=== PATIENT | male | born 1970 | race Caucasian/White ===

== ENCOUNTER 2024-06-08 12:20 | Outpatient (AMB) | payer OTHER, SELFPAY ==
--- NOTE | 2024-06-08 12:23 | A.OFFVIS_ITS ---
Intake Visit Reasons: Left Sided Sciatica Intake Note: RM 3 Yarn Spinner Required: No Allergies amoxicillin Allergy (Intermediate, Verified 06/08/24 12:30) Hives Medication List - Last Reconciled 06/08/24 by Vibha Rodríguez, MANAGER INTERVENTIONAL aspirin (Adult Low Dose Aspirin) 81 mg PO DAILY atorvastatin 80 mg PO DAILY methocarbamol 500 mg PO TID PRN metoprolol succinate ER 12.5 mg PO DAILY nitroglycerin mg sublingual pantoprazole 40 mg PO BID ticagrelor (Brilinta) 90 mg PO BID HPI HPI Left Sided Sciatica: Details: History of Present Illness The patient is a 53-year-old male presenting with chronic left-sided sciatica that originated in January. This condition is characterized by lower back pain radiating down the left leg to the ankle and heel, with additional, though less severe, right leg involvement from mid-thigh to knee. Physical therapy for >3 months provided limited improvement. His medical history includes a recent acute ST-elevation myocardial infarction (SC) with subsequent stent placement and ongoing Brilinta therapy, as well as a 7 mm kidney stone requiring laser lithotripsy and stent placement. He also has ADHD, Blackwell's esophagus, BPH, hyperlipidemia, migraines with aura, morbid obesity, and double knee replacement surgery in 2022. The patient's occupation involves constant standing and movement, imposing further physical demand. Pain Description - Onset and Timing: Pain began in January; chronic in nature. - Quality and Character: Described as lightning strikes in the left leg. - Primary Location: Lower back. - Areas of Radiation: Down left leg to ankle and heel; right side from mid-thigh to knee. - Exacerbating Factors: Movement, standing, kneeling. - Relieving Factors: None specified, minimal relief from physical therapy. - Functional Interference: Causes hunched walking posture, impacts mobility and work at the [employer]. Physical Exam - Appears afebrile. - Alert and oriented. - Mood and affect appropriate. - Follows and participates in conversation appropriately. - Respiratory effort is unlabored. - Able to transition from sit to stand unassisted. - Ambulates with bilaterally normal heel strike and toe off. - Able to stand and walk on toes and heels. - Rises up with discomfort. Results - MRI: Not yet completed but recommended for sciatic nerve evaluation. Pain Management - Affect: Pain severely limits activity; desire to return comfortably to work. - Analgesia: Current medications include Brilinta, aspirin, and gabapentin for pain and underlying conditions. On a scale of 0-10, current pain level not explicitly discussed. - Adverse Effects: Concerns about bleeding risks with Brilinta use. - Activities of Daily Living: Ability to perform job duties is compromised; mobility is hindered. - Aberrant Drug Related Behaviors: No evidence of medication misuse. Assessment & Plan Assessment & Plan (1) Lumbar radicular pain: Code(s): M54.16 - Radiculopathy, lumbar region Category: Medical Plan Plan - Obtain MRI for detailed evaluation of sciatic nerve involvement. - Consult powerhouse mechanic helper about holding Brilinta in July to facilitate cortisone injection. - Adjust gabapentin dose to manage pain, up to 1200 mg as needed. - Consider CBD products to aid pain relief. - Coordinate ongoing cardiovascular management with powerhouse mechanic helper. Patient was informed and verbally consented to the use of an ambient scribe for clinic note documentation during this visit. Discussion Notes During the consultation, I discussed the current issue of chronic left-sided sciatica with the patient, explaining its suspected connection to potential disc herniation, specifically possibly at the L5-S1 level. The primary focus is obtaining an MRI to assess sciatic nerve involvement for more precise diagnosis and treatment planning. I highlighted the potential intervention of an epidural cortisone shot but emphasized that the patient's anticoagulation therapy must be managed in conjunction with the cardiology team to avoid complications. We explored adjusting the patient's gabapentin dosage for better pain control, while monitoring for adverse effects, and considered supplemental options like CBD products. The patient was informed of the necessity for ongoing coordination with his powerhouse mechanic helper, especially regarding the possibility of temporarily discontinuing Brilinta to facilitate pain interventions. Follow-up communication with radiology for an MRI appointment was advised if not contacted within two weeks, ensuring continuity of care and progression towards an effective asad atment plan. Patient Instructions - Be prepared for an MRI test soon; expect a call within two to three weeks to schedule it. - Follow up with your powerhouse mechanic helper to discuss the possibility of holding Brilinta after July if a cortisone injection is to be pursued. - Monitor your pain and adjust your gabapentin dosage as needed, up to 1200 mg per day, but do not exceed without consulting us or your primary doctor. - Consider trying CBD products for pain relief and mobility improvement. - Keep regular appointments with your doctors for ongoing management. Orders: Orders MR lumbar spine wo con Today M54.16 - Radiculopathy, lumbar region Coding Level of Care Code New Pt Level 4 (17249) Diagnoses Lumbar radicular pain M54.16
--- OUTSIDE RECORDS SUMMARY | 2024-06-08 13:07 | XMS_ITS | Encounter Summary ---
Author Organization [facility] Address [address] [place] [address] Care Team Providers Care Hr Administrative Assistant Name Role Phone Pcp, No Primary Care Provider Unavailabl e Encounter Details Date Type Department Care Team ([facility] Contact Info) Description 05/15/2024 Procedure Pass [facility], Radiology (CT Scan) [address] [place] [id number] Social History Tobacco Use Types Packs/Day Years Used Date Smoking Tobacco: Never Assessed Sex and Gender Information Value Date Recorded Sex Assigned at Not on file Legal Sex Male 9:17 PM EDT Gender Identity Not on file Sexual Orientation Not on file documented as of this encounter Plan of Treatment Not on file documented as of this encounter Visit Diagnoses Not on filedocumented in this encounter Care Teams Hr Administrative Assistant Relationship Specialty Start Date End Date Pcp, [place] [id number] PCP - General 05/15/24 documented as of this encounter
--- OUTSIDE RECORDS SUMMARY | 2024-06-08 13:07 | XMS_ITS ---
Author Name [facility] Organization Unknown Problems Problem Status Onset Date Problem Type Date of Resoluti on Source Left lower quadrant abdominal pain active EncounterDiagnosisAct [id number] H Encounters Encounter Type Encounter Reason Primary Diagnosis Location Date Emergency Left lower quadrant pain Left lower quadrant pain [facility] 05/15/2024 Care Team Organization Name Specialty Phone Email Start Date End [facility] te [facility] 05/22/2024 [facility] 05/16/2024
--- OUTSIDE RECORDS SUMMARY | 2024-06-08 13:07 | XMS_ITS | Clinical Summary ---
Author Organization [facility] Address [address] [place] [id number] Care Team Providers Care Ticketer Name Role Phone Pcp, No Primary Care Provider Unavailabl e Allergies Active Allergy Reactions Criticality Noted Date Comments Amoxicillin Hives Medium 05/15/2024 Medications HYDROcodone-acet aminophen ([place]) 5-325 mg tablet Take 1 tablet by mouth every 6 (six) hours if needed for severe pain for up to 3 days. 8 tablet 05/16/2024 Active Encounters Date Type Department Care Team Description 05/16/2024 Procedure [facility], Radiology (CT Scan) [address] [place] [id number] 05/15/2024 9:39 PM EDT - 05/16/2024 3:49 AM EDT Emergency [facility] [place] [address] Leona Ba MD Left lower quadrant abdominal pain (Primary Dx) Discharge Disposition: Home or Self Care 05/15/2024 Procedure [facility], Radiology (CT Scan) [address] [place] [id number] 05/15/2024 Travel from Last 3 Months Social History Tobacco Use Types Packs/Day Years Used Date Smoking Tobacco: Never Assessed Sex and Gender Information Value Date Recorded Sex Assigned at Not on file Legal Sex Male 9:17 PM EDT Gender Identity Not on file Sexual Orientation Not on file Last Filed Vital Signs Vital Sign Reading Time Taken Comments Blood Pressure 138/74 05/16/2024 3:47 AM EDT Pulse 100 05/15/2024 9:40 PM EDT Temperature 36.7 ??C (98 ??F) 05/16/2024 3:38 AM EDT Respiratory Rate 16 05/16/2024 3:47 AM EDT Oxygen Saturation 97% 05/16/2024 3:47 AM EDT Inhaled Oxygen Concentration - - Weight 117.5 kg (259 lb 0.7 oz) 05/15/2024 9:40 PM EDT Height 175.3 cm (5' 9 ) 05/15/2024 9:40 PM EDT Body Mass Index 38.25 05/15/2024 9:40 PM EDT Plan of Treatment Health Maintenance Due Date Last Done Comments CT Colonography 1968 Colonoscopy 1968 Colorectal Cancer Screening 1968 FIT-DNA 1968 FIT 1968 FOBT 1968 Hepatitis C Screening 1968 Lipid Panel 1968 Sigmoidoscopy 1968 Annual Physical Exam 1986 Tdap and Td Vaccines Adult 11/09/1987 Pneumococcal Vaccine: 50+ Ye ars (1 of 1 - PCV) 2018 Zoster Vaccines (1 of 2) 2018 COVID-19 Vaccine ( - 2023-2 5 season) 2023 Influenza Vaccine (Season Ended) 2024 HIB Vaccines Aged Out No longer eligi ble based on patient's age to complete this topic HPV Vaccines Aged Out No longer eligi ble based on patient's age to complete this topic Hepatitis A Vaccines Aged Out No long er eligible based on patient's age to complete this topic IPV Vaccines Aged Out No longer eligi ble based on patient's age to complete this topic Meningococcal Vaccine Aged Out No vannessa ady eligible based on patient's age to complete this topic RSV <20 Months Aged Out No longer ming gible based on patient's age to complete this topic Procedures Procedure Name Priority Date/Time Associated Diagnosis Comments CT ABDOMEN PELVIS W IV CONTRAST STAT 05/16/2024 1:57 AM EDT UA WITH REFLEX CULTURE STAT 05/16/2024 12:[address] ABDOMEN PELVIS WO IV CONTRAST STAT 05/15/2024 11:55 PM EDT ECG 12-LEAD STAT 05/15/2024 11:02 PM EDT CMP. STAT 05/15/2024 10:05 PM EDT LIPASE STAT 05/15/2024 10:05 PM EDT CMP. STAT 05/15/2024 10:05 PM EDT PLACEHOLDER MINT STAT 05/15/2024 10:0 4 PM EDT EXTRA TUBES STAT 05/15/2024 10:04 PM EDT CBC WITH AUTO DIFFERENTIAL STAT 05/15/2024 10:04 PM EDT CBC AND DIFFERENTIAL STAT 05/15/2024 10:04 PM EDT from Last 3 Months Results * CT Abdomen Pelvis w IV Contrast (05/16/2024 1:57 AM EDT) Anatomical Region Laterality Modality Body Computed Tomogra phy Impressions 05/16/2024 7:18 AM EDT Impression: No evidence of renal/ureteric calculus or hydroureteronephrosis. Subtle cortical hypodensities in the left kidney with perinephric fat stranding, Suspicious for acute pyelonephritis.Recommend clinical and laboratory correlation. ?? Other findings as described above. END OF REPORT Narrative 05/16/2024 7:18 AM EDT Protocol1: - Axial images with multiplanar reformations. CT scan of the abdomen and pelvis. May 16, 2024 0147 hours Clinical History: left flank/abd pain, ?lucency within L renal capsule on noncon CT Technique: Helical axial sections with sagittal and coronal reformats of the abdomen and pelvis were obtained with intravenous contrast. Iterative reconstruction technique was employed to reduce patient radiation exposure. Contrast Dose: 100 mL Omnipaque 350 IV. Radiation Dose: Total exam DLP 1249.50 mGy/cm. Compared with the prior study dated April Findings: Bibasilar atelectasis is seen. There are subtle cortical hypodensities in the left kidney with perinephric fat stranding.There are left renal cysts, the largest measuring 2 cm in the left upper pole. The liver, gallbladder, pancreas, spleen and adrenals are unremarkable. No evidence of bowel obstruction. ??The appendix is surgically absent. There is no mesenteric or retroperitoneal adenopathy. The aorta and its branches demonstrate atheromatous calcification without evidence of aneurysm. The urinary bladder is unremarkable. Calcific densities are seen in the pelvis, likely representing phleboliths. There is no free fluid or free air. Degenerative changes are identified in the spine. Procedure Note Andrae Pinzon MD - 05/16/2024 Protocol1: - Axial images with multiplanar reformations. CT scan of the abdomen and pelvis. May 16, 2024 0147 hours Clinical History: left flank/abd pain, ?lucency within L renal capsule onnoncon CT Technique: Helical axial sections with sagittal and coronal reformats ofthe abdomen and pelvis were obtained with intravenous contrast. Iterativereconstruction technique was employed to reduce patient radiationexposure. Contrast Dose: 100 mL Omnipaque 350 IV. Radiation Dose: Total exam DLP 1249.50 mGy/cm. Compared with the prior study dated April Findings: Bibasilar atelectasis is seen. There are subtle cortical hypodensities in the left kidney withperinephric fat stranding.There are left renal cysts, the largestmeasuring 2 cm in the left upper pole. The liver, gallbladder, pancreas,spleen and adrenals are unremarkable. No evidence of bowel obstruction. The appendix is surgically absent.There is no mesenteric or retroperitoneal adenopathy. The aorta and itsbranches demonstrate atheromatous calcification without evidence ofaneurysm. The urinary bladder is unremarkable. Calcific densities are seen in thepelvis, likely representing phleboliths. There is no free fluid or freeair. Degenerative changes are identified in the spine. IMPRESSION: Impression: No evidence of renal/ureteric calculus or hydroureteronephrosis. Subtle cortical hypodensities in the left kidney with perinephric fatstranding, Suspicious for acute pyelonephritis.Recommend clinical andlaboratory correlation. Other findings as described above. END OF REPORT Leona Ba MD IMG CT PROCEDURES Final Resul t * (ABNORMAL) UA with Reflex Culture (05/16/2024 12:11 AM EDT) Color Yellow Yellow, Straw, Dark Yellow 05/16/2024 12:43 AM EDT LAB[facility] Clarity Clear Clear 05/16/2024 12:43 AM EDT LAB[facility]ATORY SERVICES Specific [place] 1.025 05/17/19 12:43 AM EDT LAB[facility] Comment:Values <1.005 and >1 .030 are considered abnormal. Results should always be interpreted in conjunction with the patient? s medical history, clinical presentation, and other findings. pH 6.0 5.0 - 8.0 pH 05/16/2024 12:43 AM EDT LAB[facility] Protein Negative Negative, Trace mg/dL 05/16/2024 12:43 AM EDT LAB[facility] Glucose Negative Negative mg/dL 05/16/2024 12:43 AM EDT LAB[facility]ORY [facility] Ketones Trace(A) Negative mg/dL 05/16/2024 12:43 AM EDT LAB[facility] Nitrite Negative Negative 05/16/2024 12:43 AM EDT LAB[facility] Bilirubin Negative Negative 05/16/2024 12:43 AM EDT LAB[facility] Blood Negative Negative 05/16/2024 12:43 AM EDT LAB[facility] Leukocyte Esterase Negative Negative 05/16/2024 12:43 AM EDT LAB[facility] UA Urobilinogen 1.0 0.2 - 1.0 E.U./dL 05/16/2024 12:43 AM EDT LAB[facility] Urine (Urine, Unspecified) Non-blood Collection / Unknown 05/16/2024 12:11 AM EDT 05/16/2024 12:37 AM EDT Leona Ba MD LAB URINE ORDERABLES Final Re sult LABORATORY SERVICES CT:[id number] [place] [id number], [place] * CT Abdomen Pelvis wo IV Contrast (05/15/2024 11:55 PM EDT) Anatomical Region Laterality Modality Body Computed Tomogra phy Impressions 05/16/2024 7:17 AM EDT Impression: No evidence of ureteric calculus or hydroureteronephrosis. Other findings as described above. END OF REPORT Narrative 05/16/2024 7:17 AM EDT Protocol1: - Axial images with multiplanar reformations. CT scan of the abdomen and pelvis May 15, 2024 2352 hours Clinical History: Flank pain, kidney stone suspected // lower left abdomin radiating to his left flank. hx appendectomy Technique: Helical axial sections ??with sagittal and coronal reformats of the abdomen and pelvis were obtained without intravenous contrast. Iterative reconstruction technique was employed to reduce patient radiation exposure. Radiation Dose: Total exam DLP 1360 mGy/cm. Comparison: No prior study is available for comparison. Findings: The lung bases are clear. Nonspecific perinephric fat stranding is noted bilaterally. There is a left renal cyst. There is a nonobstructing calculus in the left kidney. The liver, ??gallbladder, pancreas, spleen, and adrenals are unremarkable ??on this noncontrast study. No evidence of bowel obstruction. Appendix is surgically absent. There is no mesenteric or retroperitoneal adenopathy. The urinary bladder is unremarkable. There is no free fluid or free air. Calcific densities are seen in the pelvis, likely representing phleboliths. Mild degenerative changes are identified in the spine. Procedure Note Andrae Pinzon MD - 05/16/2024 Protocol1: - Axial images with multiplanar reformations. CT scan of the abdomen and pelvis May 15, 2024 2352 hours Clinical History: Flank pain, kidney stone suspected // lower left abdominradiating to his left flank. hx appendectomy Technique: Helical axial sections with sagittal and coronal reformats ofthe abdomen and pelvis were obtained without intravenous contrast.Iterative reconstruction technique was employed to reduce patientradiation exposure. Radiation Dose: Total exam DLP 1360 mGy/cm. Comparison: No prior study is available for comparison. Findings: The lung bases are clear. Nonspecific perinephric fat stranding is noted bilaterally. There is a left renal cyst. There is a nonobstructing calculus in the left kidney. The liver, gallbladder, pancreas, spleen, and adrenals are unremarkableon this noncontrast study. No evidence of bowel obstruction. Appendix is surgically absent. There isno mesenteric or retroperitoneal adenopathy. The urinary bladder is unremarkable. There is no free fluid or free air. Calcific densities are seen in the pelvis, likely representingphleboliths. Mild degenerative changes are identified in the spine. IMPRESSION: Impression: No evidence of ureteric calculus or hydroureteronephrosis. Other findings as described above. END OF REPORT Leona Ba MD IMG CT PROCEDURES Final Resul t * ECG 12 lead (05/15/2024 11:02 PM EDT) Heart Rate 59 bpm TRACEMASTER RR INTERVAL 1,008 ms TRACEMASTER ATRIAL RATE 60 ms TRACEMASTER VT Interval 192 ms TRACEMASTER P Duration 121 ms TRACEMASTER P Horizontal [place] -20 deg TRACEMASTER P Front [place] 44 deg TRACEMASTER Q Onset 499 ms TRACEMASTER QRSD Interval 90 ms TRACEMASTER QT Interval 415 ms TRACEMASTER QTcB 413 ms TRACEMASTER QTcF 413 ms TRACEMASTER QRS HORIZONTAL AXIS 19 deg TRACEMASTER QRS [place] 48 deg TRACEMASTER I-40 Horizontal [place] 24 deg TRACEMASTER I-40 Front [place] 31 deg TRACEMASTER T-40 Horizontal [place] -10 deg TRACEMASTER T-40 Front [place] 79 deg TRACEMASTER T Horizontal [place] 28 deg TRACEMASTER T Wave [place] 42 deg TRACEMASTER S-T Horizontal [place] 29 deg TRACEMASTER S-T Front [place] 43 deg TRACEMASTER ECG Impression - OTHERWISE NORMAL ECG - TRACEMASTER ECG Impression Sinus rhythm TRACEMASTER ECG Impression Minimal ST elevation, inferior leads TRACEMASTER 05/15/2024 11:0 2 PM EDT Corinna CARVER ECG ORDERABLES Final Resu lt TRACEMASTER * (ABNORMAL) Comprehensive Metabolic Panel. (05/15/2024 10:05 PM EDT) [facility] Sodium 144 136 - 145 mmol/L LAB CHEMISTRY METHOD 05/15/2024 10:34 PM EDT LAB[facility] Comment:Please note referenc e range changes effective 01/03/2024. Potassium 3.9 3.5 - 5.1 mmol/L LAB CHEMISTRY METHOD 05/15/2024 10:34 PM EDT LAB[facility] Comment:Please note referenc e range changes effective 01/03/2024. Chloride 107 98 - 107 mmol/L LAB CHEMISTRY METHOD 05/15/2024 10:34 PM EDT LAB[facility] Comment:Please note referenc e range changes effective 01/03/2024. CO2 28.4 20.0 - 31.0 mmol/L LAB CHEMISTRY METHOD 05/15/2024 10:34 PM EDT LAB[facility] Comment:Please note referenc e range changes effective 01/03/2024. Anion Gap 9 3 - 11 05/15/2024 10:34 PM EDT LAB[facility] Glucose Level 90 70 - 99 mg/dL LAB CHEMISTRY METHOD 05/15/2024 10:34 PM EDT LAB[facility] BUN 26(H) 9 - 23 mg/dL LAB CHEMISTRY METHOD 05/15/2024 10:34 PM EDT [facility] Comment:Please note referenc e range changes effective 01/03/2024. Creatinine, Serum 1.3 0.7 - 1.3 mg/dL LAB CHEMISTRY METHOD 05/15/2024 10:34 PM EDT LAB[facility] Comment:Please note referenc e range changes effective 01/03/2024. B/CR Ratio 20.0 6.0 - 23.0 05/15/2024 10:34 PM EDT LAB[facility] Glomerular Filtration Rate >=60 >=60 mL/min/1. 73 m2 LAB CHEMISTRY METHOD 05/15/2024 10:34 PM EDT [facility] Comment:Calculation based on the Chronic Kidney Disease Epidemiology Collaboration(CKD-EPI) equation refit without adjustment for race. Calcium, Total 9.3 8.7 - 10.4 mg/dL LAB CHEMISTRY METHOD 05/15/2024 10:34 PM EDT [facility] Comment:Please note referenc e range changes effective 01/03/2024. Total Protein 7.0 5.7 - 8.2 g/dL LAB CHEMISTRY METHOD 05/15/2024 10:34 PM EDT [facility] Comment:Please note referenc e range changes effective 01/03/2024. Albumin Level 4.8 3.2 - 4.8 g/dL LAB CHEMISTRY METHOD 05/15/2024 10:34 PM EDT LAB[facility] Comment:Please note referenc e range changes effective 01/03/2024. A/G Ratio 2.2 1.1 - 3.0 05/15/2024 10:34 PM EDT LAB[facility] Total Bilirubin 0.6 0.1 - 1.2 mg/dL LAB CHEMISTRY METHOD 05/15/2024 10:34 PM EDT LAB[facility] Comment:The [employer] Tota l Bilirubin_2 (TBil_2) assay is based on a chemical oxidation method using vanadate as an oxidizing agent. ALT 31 10 - 49 U/L LAB CHEMISTRY METHOD 05/15/2024 10:34 PM EDT LAB[facility] Comment:Please note referenc e range changes effective 01/03/2024. AST 25 <34 U/L LAB CHEMISTRY METHOD 05/15/2024 10:34 PM EDT [facility] Comment:Please note referenc e range changes effective 01/03/2024. Alkaline Phosphatase 79 28 - 130 U/L LAB CHEMISTRY METHOD 05/15/2024 10:34 PM EDT [facility] Comment:Please note referenc e range changes effective 01/03/2024. Blood Venous blood / Unknown Venipuncture / Unknown 05/15/2024 10:05 PM EDT 05/15/2024 10:05 PM EDT us Leona Ba MD LAB BLOOD ORDERABLES Final Re sult LABORATORY SERVICES CT:[id number] [place] [address], * Lipase (05/15/2024 10:05 PM EDT) Lipase 36 12 - 53 U/L LAB CHEMISTRY METHOD 05/15/2024 10:31 PM EDT LAB[facility] Comment:Please note referenc e range changes effective 01/03/2024. Blood Venous blood / Unknown Venipuncture / Unknown 05/15/2024 10:05 PM EDT 05/15/2024 10:05 PM EDT Leona Ba MD LAB BLOOD ORDERABLES Final Re sult Performing Organization Address [facility] Co de Phone Number LABORATORY SERVICES CT:[id number] [place] [address], [place] * PLACEHOLDER MINT (05/15/2024 10:04 PM EDT) Extra Tube Yes 05/16/2024 7:01 AM EDT LAB[facility] Blood Venous blood / Unknown Venipuncture / Unknown 05/15/2024 10:04 PM EDT 05/15/2024 10:04 PM EDT Leona Ba MD LAB BLOOD ORDERABLES Final Re sult Performing Organization Address [facility] de Phone Number LABORATORY SERVICES CT:[id number] [place] [address], [place] * (ABNORMAL) CBC auto differential (05/15/2024 10:04 PM EDT) Auto WBC 9.6 4.5 - 11.5 cells X 10*3/uL 05/15/2024 10:17 PM EDT LAB[facility] RBC 5.19 4.60 - 6.00 cells X 10*6/uL 05/15/2024 10:17 PM EDT LAB[facility] Hemoglobin 15.7 14.0 - 18.0 g/dL 05/15/2024 10:17 PM EDT LAB[facility] Hematocrit 48.4 40.0 - 54.0 % 05/15/2024 10:17 PM EDT LAB[facility] MCV 93.3 80.0 - 94.0 fL 05/15/2024 10:17 PM EDT LAB[facility] MCH 30.3 26.0 - 32.0 pg 05/15/2024 10:17 PM EDT LAB[facility] MCHC 32.4 32.0 - 37.0 g/dL 05/15/2024 10:17 PM EDT LAB[facility] RDW (CV) 13.0 11.5 - 14.5 % 05/15/2024 10:17 PM EDT LAB[facility] RDW (SD) 44.7 36.0 - 48.8 fL 05/15/2024 10:17 PM EDT LAB[facility] Platelets 133(L) 150 - 450 cells X 10*3/uL 05/15/2024 10:17 PM [facility] MPV 11.5 9.5 - 12.3 fL 05/15/2024 10:17 PM EDT LAB[facility] Granulocytes % 75.0 % 05/15/2024 10:17 PM T LAB[facility] Comment:Percent cell count r eference ranges have been removed. Per the [employer] recommendations, these ranges should not be reported when absolute cell count reference ranges are reported as this can lead to misinterpretation of CBC data. Immature Granulocytes % 0.5 % 05/15/2024 10:17 PM [facility] Comment:Immature Granulocyte s (percent and absolute counts) include neutrophilic metamyelocytes, myelocytes, and promyelocytes. Lymphocytes % 12.8 % 05/15/2024 10:17 PM [facility] Monocytes % 9.3 % 05/15/2024 10:17 PM [facility] Eosinophils % 2.0 % 05/15/2024 10:17 PM [facility] Basophils % 0.4 % 05/15/2024 10:17 PM [facility] Gran # 7.2 2.3 - 8.6 cells X 10*3/uL 05/15/2024 10:17 PM T LABORATORY SERVICES Comment:Please Note: Gran # is equivalent to ANC. IMM GRAN # 0.05 0.00 - 0.05 cells X 10*3/uL 05/15/2024 10:17 PM EDT LABORATORY SERVICES Eosinophils # 0.2 0.0 - 0.4 cells X 10*3/uL 05/15/2024 10:17 PM [facility] Lymphocytes # 1.2 0.8 - 4.8 cells X 10*3/uL 05/15/2024 10:17 PM EDT LABORATORY SERVICES MONO # 0.9 0.1 - 1.3 cells X 10*3/uL 05/15/2024 10:17 PM EDT LABOR[facility]ORY SERVICES BASOPHIL # 0.0 0.0 - 0.2 cells X 10*3/uL 05/15/2024 10:17 PM EDT LAB[facility] Blood Venous blood / Unknown Venipuncture / Unknown 05/15/2024 10:04 PM EDT 05/15/2024 10:04 PM EDT us Leona Ba MD LAB BLOOD ORDERABLES Final Re sult LABORATORY SERVICES CT:[id number] [place] [address], [place] from Last 3 Months Insurance [facility] Care Teams Ticketer Relationship Specialty Start Date End Date Pcp, [place] [address] PCP - General 05/15/24
--- OUTSIDE RECORDS SUMMARY | 2024-06-08 13:07 | XMS_ITS | Encounter Summary ---
Author Organization [facility] Address [address] [place] [address] Care Team Providers Care Office Spec Name Role Phone Pcp, No Primary Care Provider Unavailabl e Encounter Details Date Type Department Care Team ([facility] Contact Info) Description 05/16/2024 Procedure Pass [facility], Radiology (CT Scan) [address] [place] [id number] Social History Tobacco Use Types Packs/Day Years [...] on filedocumented in this encounter Care Teams Office Spec Relationship Specialty Start Date End Date Pcp, [place] [address] PCP - General 05/15/24 documented as of this encounter
== END 2024-06-08 12:54 | disposition home or self-care (01) ==
LOC: HO.PMC 12:21
PROVIDERS: PCP Family Medicine; Referring Provider Family Medicine; Visit Provider Internal Medicine
DX: M54.16 Radiculopathy, lumbar region (principal)
CPT/HCPCS: 99204

== ENCOUNTER → 2024-06-20 18:48 | Outpatient (BNV) | payer OTHER, SELFPAY | PROVIDERS: PCP Family Medicine; Visit Provider Radiology Diagnostic Radiology | DX: M47.816 Spondylosis without myelopathy or radiculopathy, lumbar region (principal); M99.63 Osseous and subluxation stenosis of intervertebral foramina of lumbar region | CPT/HCPCS: 72148 ==

== ENCOUNTER 2024-06-20 18:53 | Outpatient (REF) | payer OTHER, SELFPAY ==
--- NOTE | ~2024-06-20 | MR_ITS ---
EXAMINATION: MR LUMBAR SPINE WITHOUT CONTRAST CLINICAL INFORMATION: Radiculopathy, lumbar region. COMPARISON: None available. TECHNIQUE: MRI of the lumbar spine was obtained using routine sequences without contrast. FINDINGS: Last rib-bearing vertebra labeled T12. Probable Castellvi type I sacralization. Bone marrow STIR signal abnormality centered in the facet joints of L4-5 and as well as the pedicles and transverse processes. Multilevel marginal osteophyte formation and disc desiccation. Grade 1 anterolisthesis L4-5 and L5-S1, transitional vertebra. Grade 1 retrolisthesis, L2-3. The conus medullaris ends at pedicle of L1 with normal signal. T12-L1: No disc herniation. No neuroforamina stenosis. L1-2: No disc herniation. No neuroforamina stenosis. L2-3: Broad-based disc bulging. Facet joint and ligamentum flavum hypertrophy. Reduced AP diameter of the thecal sac and the neural foramina abutting the L4 and L3 exiting nerve roots. L4-5: Bilateral facet joint hypertrophy as well as ligamentum flavum. Broad-based disc bulging. Facet effusion. CSF effacement of the thecal sac and central spinal canal stenosis compressing the neural elements of the thecal sac and to a lesser extent bilateral neuroforamina stenosis encroaching the L4 exiting nerve roots. Probable 3 mm synovial cyst anterior to the right ligamentum flavum. L5-S1: Transitional vertebra. Grade 1 anterolisthesis. Broad-based disc bulging. Facet joint and ligamentum flavum hypertrophy resulting in central spinal canal and bilateral neuroforamina stenosis encroaching likely compressing the S1 and L5 nerve roots. No prevertebral compartment hematoma, mass or fluid collection. There is a 3 cm exophytic cystic lesion, left kidney. Few scattered cystic lesions in the kidneys. MR/MR lumbar spine wo con IMPRESSION: Multilevel lumbar spondylosis resulting in grade 1 anterolisthesis L4-5 and L5-S1 and central spinal canal and bilateral neuroforamina stenosis compressing the neural elements of the thecal sac at L4-5 and L5-S1 as well as the exiting nerve roots. Electronically signed by: Javon Rubio MD 06/21/2024 03:03 PM EDT
== END 2024-06-20 18:54 | disposition home or self-care (01) ==
LOC: HO.MRI 18:53
PROVIDERS: PCP Family Medicine; Visit Provider Internal Medicine
DX: M54.16 Radiculopathy, lumbar region (principal)
CPT/HCPCS: 72148

== ENCOUNTER 2024-07-02 11:05 | Outpatient (AMB) | payer OTHER, SELFPAY ==
--- NOTE | 2024-07-02 11:07 | MHC.OFFVIS ---
Vital Signs 07/02/24 11:08 Height 5 ft 9.5 in Weight 255 lb BMI 37.1 BP 149/83 H Blood Pressure Location Lt brachial Position Sitting Respiration 16 Pulse 89 Pulse Source Pulse Oximeter Pulse Oximetry (%) 96 Oxygen Delivery Method Room Air Intake Visit Reasons: MRI results Mosaic Technician Required: No Allergies amoxicillin Allergy (Intermediate, Verified 07/02/24 11:09) Hives Medication List - Last Reconciled 07/02/24 by Kelly Tamez LPN acetaminophen-codeine 300-30 mg 1 tab PO QID PRN aspirin (Adult Aspirin Regimen) 81 mg PO DAILY aspirin (Adult Low Dose Aspirin) 81 mg PO DAILY atorvastatin 80 mg PO DAILY dextroamphetamine-amphetamine 30 mg ER (Adderall XR) 1 cap PO DAILY gabapentin 400 mg PO TID methocarbamol 500 mg PO TID PRN metoprolol succinate ER 12.5 mg PO DAILY nitroglycerin mg sublingual pantoprazole 40 mg PO BID ticagrelor (Brilinta) 90 mg PO BID HPI HPI MRI results: Details: History of Present Illness The patient is a 53-year-old male presenting with lumbar-related pain issues. He experiences discomfort from lumbar spinal stenosis at L4-5, observed alongside a disc herniation and ligamentum flavum hypertrophy. The lumbar region exhibits a slight slippage of vertebrae indicative of spondylolisthesis. Facet joint degeneration, more significant on the left at L4-5 and L5-S1, adds to symptoms, which include sciatica likely triggered by irritation at the L4 nerve root. The patient's medication regimen, which includes T3 and gabapentin, has not sufficiently addressed his pain. Despite engaging in physical therapy coinciding with cardiac rehab post-stent placement after his myocardial infarction in July last year, relief has been minimal. The pain disrupts routine activities and sleep patterns, enhancing the cycle of discomfort and impacting overall life quality. Pain Description - Onset: Chronic lumbar pain stemming from L4-5 and related structures. - Quality: Discomfort with sciatica symptoms from nerve irritation. - Location: Lower back, particularly at L4-5; radiates along L4 nerve pathway. - Aggravating Factors: Physical activity; lack of sleep exacerbates the pain. - Alleviating Factors: Past therapies such as cardiac rehab and physical therapy have seen limited effectiveness; seeking new solutions. - Interference: Pain impacts work and daily function, contributing to sleep disturbances. Physical Exam Results - MRI results showing lumbar spinal stenosis at L4-5, disc herniation, ligamentum flavum hypertrophy, potential lumbar spondylolisthesis, facet joint degeneration at L4-5 and L5-S1, and a possible synovial cyst. Pain Management - Affect: Pain causes sleep disturbances and irritability. - Analgesia: Currently using T3 and gabapentin, neither providing effective relief. - Adverse Effects: No significant side effects reported. - Activities of Daily Living: Pain hampers work and sleep. - Aberrant Drug Related Behaviors: None reported; desires non-opioid solutions. [facility] Medical History (Updated 07/09/24 @ 09:50 by James Lisa MD) History of myocardial infarction Physical Exam Vital Signs: Last Vital Signs Pulse 89 07/02/24 11:08 Resp 16 07/02/24 11:08 BP 149/83 H 07/02/24 11:08 Pulse Ox 96 07/02/24 11:08 Oxygen Delivery Method Room Air 07/02/24 11:08 BMI result Body Mass Index 37.1 Assessment & Plan Assessment & Plan (1) Lumbar radicular pain: Code(s): M54.16 - Radiculopathy, lumbar region Category: Medical (2) Coronary artery disease: Code(s): I25.10 - Atherosclerotic heart disease of [place] coronary artery without angina pectoris Category: Medical Plan Plan - Administer lumbar epidural steroid injection at L3-4 for lumbar spinal stenosis related radicular pain relief. - Consider radiofrequency ablation for facet pain in the future. - Review need for minimally invasive decompression or consult for possible lumbar spinal fusion. - Transition off Brilinta after confirming with strip tank tender, aligned with travel plans. - Switch to tramadol after PCP consultation if tylenol #3 insufficient. - Perform x-ray to evaluate spinal movement and stability status. Patient was informed and verbally consented to the use of an ambient scribe for clinic note documentation during this visit. Discussion Notes I reviewed the MRI results with the patient, confirming the presence of lumbar spinal stenosis at L4-5 and corresponding disc herniation, facet joint degeneration, and related issues. We explored pain management options, contemplating cortisone injections and more advanced interventions such as nerve ablation if necessary. We discussed the potential need for surgery if conservative treatments prove inadequate. As part of the plan, I advised coordination with the patient's strip tank tender to discuss timing regarding stopping Brilinta, considering anticipated travel and the impact of his pain on physical activity. We reviewed the need for imaging to further assess spinal stability and delineated necessary preapproval changes in medication to effectively manage his pain without resorting to opioids. Patient Instructions - Consider getting a lumbar epidural steroid injection as a treatment option. - Discuss with your PCP about switching to tramadol for pain management. - Coordinate with your strip tank tender about stopping Brilinta on July 21. - Follow up with an x-ray to check spinal instability as soon as possible. - Ensure to call ahead if changes to the current pain management plan are needed. Orders: Orders XR lumbar spine 6V w bending 07/02/24 M54.16 - Radiculopathy, lumbar region Coding Level of Care Code Est Pt Level 4 (21225) Diagnoses Lumbar radicular pain M54.16 Coronary artery disease I25.10
[2024-07-02 11:08] VITALS: BP 149/83; PULSE 89; RESP 16; O2SAT 96; BMI 37.1
--- OUTSIDE RECORDS SUMMARY | 2024-07-02 11:51 | XMS_ITS | Encounter Summary ---
Author Organization [facility] Address [address] [place] [address] Care Team Providers Care Dry Cleaner Helper Name Role Phone Pcp, No Primary Care Provider Unavailabl e Encounter Details Date Type Department Care Team ([facility] Contact Info) Description 05/16/2024 Procedure Pass [facility], Radiology (CT Scan) [address] [place] [id number] Social History Tobacco Use Types Packs/Day Years [...] on filedocumented in this encounter Care Teams Dry Cleaner Helper Relationship Specialty Start Date End Date Pcp, No [place] [address] PCP - General 05/15/24 documented as of this encounter
--- OUTSIDE RECORDS SUMMARY | 2024-07-02 11:51 | XMS_ITS | Clinical Summary ---
Author Organization [facility] Address [address] [place] [address] Care Team Providers Care Value Stream Leader Name Role Phone Pcp, No Primary Care Provider Unavailabl e Allergies Active Allergy Reactions Criticality Noted Date Comments Amoxicillin Hives Medium 05/15/2024 Medications HYDROcodone-acet aminophen (Isabella) 5-325 mg tablet Take 1 tablet by mouth every 6 (six) hours if needed for severe pain for up to 3 days. 8 tablet 05/16/2024 Active Encounters Date Type Department Care Team Description 05/16/2024 Procedure [facility], Radiology (CT Scan) [address] [place] [address] 05/15/2024 9:39 PM EDT - 05/16/2024 3:49 AM EDT Emergency [facility] [place] [address] Leona Ba MD Left lower quadrant abdominal pain (Primary Dx) Discharge Disposition: Home or Self Care 05/15/2024 Procedure [facility], Radiology (CT Scan) [address] [place] [address] 05/15/2024 Travel from Last 3 Months Social [...] 05/16/2024 12:43 AM EDT LABORATORY SERVICES Specific [place] 1.025 05/17/19 12:43 AM EDT LABORATORY SERVICES [...] ORDERABLES Final Re sult LABORATORY SERVICES [id number] [place] [address], [place] * CT Abdomen Pelvis wo IV [...] ms TRACEMASTER ATRIAL RATE 60 ms TRACEMASTER UT Interval 192 ms TRACEMASTER P Duration 121 ms TRACEMASTER P Horizontal Rives -20 deg TRACEMASTER P Front Rives 44 deg TRACEMASTER Q Onset 499 ms TRACEMASTER QRSD Interval 90 ms TRACEMASTER QT Interval 415 ms TRACEMASTER QTcB 413 ms TRACEMASTER QTcF 413 ms TRACEMASTER QRS HORIZONTAL AXIS 19 deg TRACEMASTER QRS Rives 48 deg TRACEMASTER I-40 Horizontal Rives 24 deg TRACEMASTER I-40 Front Rives 31 deg TRACEMASTER T-40 Horizontal Rives -10 deg TRACEMASTER T-40 Front Rives 79 deg TRACEMASTER T Horizontal Rives 28 deg TRACEMASTER T Wave Rives 42 deg TRACEMASTER S-T Horizontal Rives 29 deg TRACEMASTER S-T Front Rives 43 deg TRACEMASTER ECG Impression - OTHERWISE NORMAL ECG - TRACEMASTER ECG Impression Sinus rhythm TRACEMASTER ECG Impression Minimal ST elevation, inferior leads TRACEMASTER 05/15/2024 11:0 2 PM EDT Corinna CARVER ECG ORDERABLES Final Resu lt TRACEMASTER * (ABNORMAL) Comprehensive Metabolic Panel. (05/15/2024 10:05 PM EDT) [facility] Sodium 144 136 - 145 mmol/L LAB [...] ORDERABLES Final Re sult LABORATORY SERVICES [id number] [place] [address], * Lipase (05/15/2024 10:05 PM EDT) Lipase 36 12 - 53 U/L LAB CHEMISTRY METHOD 05/15/2024 10:31 PM EDT LABORATORY SERVICES Comment:Please note referenc e range changes effective 01/03/2024. Blood Venous blood / Unknown Venipuncture / Unknown 05/15/2024 10:05 PM EDT 05/15/2024 10:05 PM EDT Leona Ba MD LAB BLOOD ORDERABLES Final Re sult Performing Organization Address [facility] Co de Phone Number LABORATORY SERVICES [id number] [place] [address], [place] * [place] (05/15/2024 10:04 PM EDT) Extra Tube Yes 05/16/2024 7:01 AM EDT LABORATORY SERVICES Blood Venous blood / Unknown Venipuncture / Unknown 05/15/2024 10:04 PM EDT 05/15/2024 10:04 PM EDT Leona Ba MD LAB BLOOD ORDERABLES Final Re sult Performing Organization Address [facility] de Phone Number LABORATORY SERVICES [id number] [place] [address], [place] * (ABNORMAL) CBC auto differential (05/15/2024 [...] 450 cells X 10*3/uL [facility]24 [facility] MPV 11.5 9.5 - 12.3 fL 05/15/2024 10:17 PM EDT LABORATORY SERVICES Granulocytes % 75.0 % 05/15/2024 10:17 PM T LABORATORY SERVICES Comment:Percent cell count r eference ranges have been removed. Per the [employer] recommendations, these ranges should not be reported when absolute cell count reference ranges are reported as this can lead to misinterpretation of CBC data. Immature Granulocytes % 0.5 % 05/15/2024 10:17 PM [facility] LABORATORY SERVICES Comment:Immature Granulocyte s (percent and absolute counts) include neutrophilic metamyelocytes, myelocytes, and promyelocytes. Lymphocytes % 12.8 % 05/15/2024 10:17 PM [facility] Monocytes % 9.3 % 05/15/2024 10:17 PM [facility] Eosinophils % 2.0 % 05/15/2024 10:17 PM [facility] LABORATORY SERVICES Basophils % 0.4 % 05/15/2024 10:17 PM [facility] Gran # 7.2 2.3 - 8.6 cells X 10*3/uL 05/15/2024 10:17 PM T LABORATORY SERVICES Comment:Please Note: Gran # is equivalent to ANC. IMM GRAN # 0.05 0.00 - 0.05 cells X 10*3/uL 05/15/2024 10:17 PM EDT LABORATORY SERVICES Eosinophils # 0.2 0.0 - 0.4 cells X 10*3/uL 05/15/2024 10:17 PM [facility] LABORATORY SERVICES Lymphocytes # 1.2 0.8 - [...] ORDERABLES Final Re sult LABORATORY SERVICES CT:[id number] [place] [address], [place] from Last 3 Months Insurance [facility] Care Teams Value Stream Leader Relationship Specialty Start Date End Date Pcp, [place] [address] PCP - General 05/15/24
--- OUTSIDE RECORDS SUMMARY | 2024-07-02 11:51 | XMS_ITS | Data Portability ---
Author Organization [facility] [address] Address [address] [place] [address] Assessment No assessment recorded. Plan of Treatment Reminders Order Date Submit Date Provider Last Modified By Organization Details Last Modified Time Details Appointments None recorded. Lab None recorded. Referral emergency medicine referral 2023 024 [email or web address] Not available 20:44:05 Procedures None recorded. Surgeries None recorded. Imaging None recorded. Medication Orders None recorded. Patient TargetsNo targets recorded. Patient Instructions Encounter Date Encounter Id Patient Instructions Last Modified By Organization Details Last Modified Time 12/12/2023 [id number] coughing up blood: care instructions [email or web address] Not available 12/12/2023 20:41:48 Reason for Referral Emergency Medicine Referral for Hemoptysis Referring Physician: Luciana Stewart, Urgent Care, Encounter Date: 12/12/2023 Problems Name Problem SNOMED Code Status Onset Date Resolution Date Notes Provider Name and Address Organization Details Recorded Time Arthroplasty of knee Active Janice O'Macho null, [place] - [facility] 4 19:47:16 Attention deficit hyperactivity disorder 905885713 Active Janice O'Macho null, PA - [facility] 19:47:30 Cholesterol level - finding 214222008 Active Janice O'Macho null, PA - [facility] 19:48:12 Acute non-ST segment elevation myocardial infarction 064416426 Active Janice O'Macho null, PA - [facility] 19:50:14 Migraine 66130529 Active Janice O'Macho null, PA - [facility] 10/21/202 4 19:50:28 Hypertensive disorder 19811920 Active Janice Hausern null, PA - [facility] 4 19:51:20 Blackwell's esophagus 496380765 Active Janice GeorginaMacho null, PA - [facility] 4 19:52:11 Large prostate 717574096 Active Janice GeorginaMacho null, PA - [facility] 4 19:53:37 Hemoptysis 80043920 Active 2023 Luciana Stewart, ANAHI [address] [place], [place], [address] [facility] [place] - [facility] 20:40:04 Problem Notes None recorded. Medical Equipment None Reported. Allergies Allergen ID Allergen Name Allergen Category Reaction Reaction Severity Criticality Documentation Date Start Date Code Code System Note Provider Name and Address Organization Details Recorded Time 5369047 amoxicill in medicatio n hives moderate Not available 12/12/2023 723 RxNorm Janice Hausern null, [place] - [facility] 19:42:14 Medications Name Sig Start Date Stop Date Status Note LastModified by Organization Details LastModified Time atorvastati n 80 mg tablet TAKE 1 TABLET BY MOUTH EVERY DAY FOR HIGH CHOLESTER OL active Not Available Not Available No t Available atorvastati n 20 mg tablet TAKE 1 TABLET BY MOUTH EVERY DAY 12/11 completed Not Available Not Available Not Available ibuprofen 800 mg tablet TAKE 1 TABLET BY MOUTH THREE TIMES DAILY WITH FOOD OR MILK DIRECTED 12/11 completed Not Available Not Available Not Available acetaminoph en 300 mg-codeine 30 mg tablet TAKE 1 TABLET BY MOUTH FOUR TIMES DAILY NEEDED FOR KNEE PAIN active Not Available Not Available No t Available aspirin 81 mg tablet,nancy yed release TAKE 1 TABLET BY MOUTH DAILY FOR NSTEMI active Not Available Not Available No t Available carvedilol 3.125 mg tablet TAKE 1 TABLET BY MOUTH TWICE DAILY FOR NSTEMI 12/11 completed Not Available Not Available Not Available Adderall XR 30 mg capsule,ext ended release TAKE 1 CAPSULE BY MOUTH EVERY DAY active Not Available Not Available No t Available tamsulosin 0.4 mg capsule TAKE 1 CAPSULE BY MOUTH EVERY NIGHT AT BEDTIME active Not Available Not Available No t Available dextroamphe tamine-amph etamine ER 20 mg 24hr capsule,ext end release TAKE 1 CAPSULE BY MOUTH EVERY DAY 12/11 completed Not Available Not Available Not Available pantoprazol e 40 mg tablet,nancy yed release TAKE 1 TABLET BY MOUTH TWICE DAILY active Not Available Not Available No t Available nicotine 21 mg/24 hr daily transdermal patch APPLY 1 PATCH TO THE SKIN DAILY. REMOVE OLD PATCH BEFORE APPLYING NEW ONE. active Not Available Not Available No t Available nitroglycer in 0.[address] 1 TABLET UNDER TONGUE EVERY 5 MIN NEEDED FOR CHEST PAIN, MAX OF 3 DOSES/15 MIN CALL 911/SEEK MEDICAL ATTENTION IF PAIN PERSISTS* * active Not Available Not Available No t Available oxybutynin chloride ER 5 mg tablet,exte nded release 24 hr TAKE 1 TABLET BY MOUTH EVERY MORNING 12/11 completed Not Available Not Available Not Available gabapentin 100 mg capsule TAKE 2 CAPSULES BY MOUTH TWICE DAILY active Not Available Not Available No t Available metoprolol succinate ER 25 mg tablet,exte nded release 24 hr TAKE 1/2 TABLET BY MOUTH DAILY active Not Available Not Available No t Available oxycodone 5 mg tablet TAKE 1 TABLET BY MOUTH EVERY 4 TO 6 HOURS NEEDED 12/11 completed Not Available Not Available Not Available tadalafil 5 mg tablet 12/11 completed Not Available Not Available Not Available Brilinta 90 mg tablet TAKE 1 TABLET BY MOUTH TWICE A DAY active Not Available Not Available No t Available Vitals Date Recorded Body height Body mass index (BMI) Body weight Oxygen saturation Oxygen saturation in Arterial blood by Pulse oximetry Heart rate Body temperature Systolic blood pressure Diastolic blood pressure Provider Name and Address Organization Details Last Updated DateTime 4 175.26 cm 37.2 kg/m2 700926. 28 g 98 % 98 % 78 /min 97.9 [degF] 122 mm[Hg] 81 mm[Hg] Janice CARVER [email or web address] 19:41:13 Social History Question Answer Notes LastModified by Organizat ion Details LastModified Time Tobacco Smoking Status Current Every Day Smoker [facility] 12/12/2023 19:54:53 Have You Had A Flu Shot This Season? No Information not available 12/12/2023 If No, Would You Like A Flu Shot Today? A/P Information not available 12/12/2023 What Is Your Relationship Status? Information not available 12/12/2023 Are You Passively Exposed To Smoke? Yes Information no t available 12/12/2023 How Much Tobacco Do You Smoke? 0.5 PPD Information not available 12/12/2023 Have You Recently Traveled Abroad? No Information not available 12/12/2023 Sex: Unknown Functional Status Question Answer Note LastModified by [employer] Details LastModified Time How many times per week do you consume alcohol? Less than 1 time per week Information not available 12/12/2023 Do you use any illicit or recreational drugs? No Information not available 12/12/2023 Do you or have you ever used any other forms of tobacco or nicotine? Yes Information not available 12/12/2023 What is your level of alcohol consumption? Occasional Information not available 12/12/2023 Are you currently employed? Yes Information not available 12/12/2023 Do you or have you ever used e-cigarettes or vape? Current user of electronic cigarettes Information not available 12/12/2023 Mental Status None recorded. Family History Nothing Reported. Medical History No medical history recorded. Past Encounters Encounter ID Performer Location Encounter Start Date Encounter Closed Date Diagnosis/Indication Diagnosis SNOMED-CT Code Diagnosis ICD10 Code Diagnosis Note [id number] [facility] [address] [place] [address] 10/20/2016 12:32:40 10/20/2016 12:58:36 [id number] [address] [facility] [address] [place] [address] 09/20/2019 13:59:39 09/20/2019 15:06:02 [id number] [address] [address] [facility] [address] [place] [address] 10/20/2016 19:01:22 10/20/2016 19:01:40 [id number] [place] [address] [address] 12/12/2023 19:03:52 12/12/2023 20:44:05 Hemoptysis 80796348 R04.2 We are limited in our diagnostic capabiliti es in our center and feel that it would be best to go to the Emergency Room. Based on your presentati on it would be best to have access to lab work and advanced imaging, if the physician would feel that would be indicated based on your History and Presentati on. These things are typically necessary to give you an accurate diagnosis your condition do have the risk of having significan t complicati ons if not diagnosed and treated appropriat mik. This may include . Health Concerns Section Related Observation LastModified by Organization Detai ls LastModified Time None Recorded Concern Status LastModified by Organization Details LastModified Time None Recorded Advance Directives Directive None Recorded Payers Insurance Date Sequence Insurance Name Policy Number Policy Paul Covered Member ID Paul Member ID Guarantor Name 12/12/2023 1 [facility] (MEDICARE REPLACEMENT /ADVANTAGE - HMO) Enio Villalta [id number] Enio Villalta 12/12/2023 1 [facility] [id number] Enio Villalta [id number] Enio Villalta Notes Date Note Type Note Provider Name and Address Organization Details Recorded Time 4 text/html CoughReported bypatient.source of patient informationInformation obtained from patient; Patient arrived at Urgent Care ambulatory Quality:harsh;barking;dry; symptoms worse with lying down Severity:worsening; moderate Duration:3 days Timing:worsening; gradual Context:family members ill with similar symptoms; Patient denies vaping; non-smoker Associated Symptoms:no fever; no chest pain; no heartburn; no nausea; no vomiting; no edema; no agitation; no wheezing;chills;post nasal drip;can't get a deep breath Luciana Stewart NP [address] [place], [address], [place] - [facility] 12/17/2023 08:47:16
--- OUTSIDE RECORDS SUMMARY | 2024-07-02 11:51 | XMS_ITS | Encounter Summary ---
Author Organization [facility] Address [address] [place] [address] Care Team Providers Care Tennis Player Name Role Phone Pcp, No Primary Care Provider Unavailabl e Encounter Details Date Type Department Care Team ([facility] Contact Info) Description 05/15/2024 Procedure Pass [facility], Radiology (CT Scan) [address] [place] [address] Social History Tobacco Use Types Packs/Day Years [...] on filedocumented in this encounter Care Teams Tennis Player Relationship Specialty Start Date End Date Pcp, [place] [address] PCP - General 05/15/24 documented as of this encounter
== END 2024-07-02 11:49 | disposition home or self-care (01) ==
LOC: HO.PMC 11:06
PROVIDERS: PCP Family Medicine; Visit Provider Internal Medicine
DX: M54.16 Radiculopathy, lumbar region (principal); I25.10 Atherosclerotic heart disease of native coronary artery without angina pectoris
CPT/HCPCS: 99214

== ENCOUNTER 2024-07-26 06:09 | Outpatient (REF) | payer OTHER, SELFPAY ==
--- NOTE | ~2024-07-26 | FL_ITS ---
EXAMINATION: FL GUIDANCE ONLY HISTORY: M54.16 - Radiculopathy, lumbar region COMPARISON: None available. TECHNIQUE: Fluoroscopy time: 15.0 seconds. Cumulative Dose: 9.91 mGy. DAP: 1.3457 mGym2 Images: 2. FINDINGS: Fluoroscopic spot films of the lumbar spine in the AP and lateral projection demonstrate a needle and contrast material in place. FL/FL guidance in treatment room IMPRESSION: Fluoroscopy during procedure. Please see procedure report for additional information. Electronically signed by: James Hanley MD 07/26/2024 02:41 PM EDT
== END 2024-07-26 06:10 | disposition home or self-care (01) ==
LOC: CF 06:09
PROVIDERS: Visit Provider Internal Medicine
DX: M54.16 Radiculopathy, lumbar region (principal)
CPT/HCPCS: 62323; J1100; J2003; J3301; Q9967

== ENCOUNTER 2024-07-26 11:06 | Outpatient (AMB) | payer OTHER, SELFPAY ==
[2024-07-26 11:18] VITALS: BP 146/79; PULSE 78; RESP 16; O2SAT 98
--- NOTE | 2024-07-26 11:18 | A.OFFVIS_ITS ---
Vital Signs 07/26/24 11:18 07/26/24 11:47 BP 146/79 H 137/83 Blood Pressure Location Lt brachial Lt brachial Position Sitting Sitting Respiration 16 16 Pulse 78 83 Pulse Source Pulse Oximeter Pulse Oximeter Pulse Oximetry (%) 98 97 Oxygen Delivery Method Room Air Room Air Intake Visit Reasons: L3-L4 interlaminar DOMINIQUE Property Claims Adjuster Required: No Allergies amoxicillin Allergy (Intermediate, Verified 07/26/24 11:19) Hives Medication List - Last Reconciled 07/26/24 by Kelly Tamez LPN acetaminophen-codeine 300-30 mg 1 tab PO QID PRN aspirin (Adult Aspirin Regimen) 81 mg PO DAILY aspirin (Adult Low Dose Aspirin) 81 mg PO DAILY atorvastatin 80 mg PO DAILY dextroamphetamine-amphetamine 30 mg ER (Adderall XR) 1 cap PO DAILY gabapentin 400 mg PO TID methocarbamol 500 mg PO TID PRN metoprolol succinate ER 12.5 mg PO DAILY nitroglycerin mg sublingual pantoprazole 40 mg PO BID ticagrelor (Brilinta) 90 mg PO BID HPI HPI L3-L4 interlaminar DOMINIQUE: Details: Patient presents for scheduled procedure. Denies any recent cough, cold, infection, fever or other significant changes in medical history since last office visit. [facility] Medical History (Updated 07/09/24 @ 09:50 by James Lisa MD) History of myocardial infarction Physical Exam Vital Signs: Last Vital Signs Pulse 83 07/26/24 11:47 Resp 16 07/26/24 11:47 BP 137/83 07/26/24 11:47 Pulse Ox 97 07/26/24 11:47 Oxygen Delivery Method Room Air 07/26/24 11:47 Office Procedures AMB Joint Injection/Aspiration Joint Injection/Aspiration Details: Interlaminar epidural steroid injection, L3/4, Midline After obtaining written consent, pre-procedure blood pressure and heart rate were stable and recorded in the nursing record. The patient was placed in the prone position. The lumbar area was widely prepped with chloraprep and draped in sterile fashion. Fluoroscopic guidance was used to identify the desired interlaminar space and for needle placement. Subcutaneous 0.5% lidocaine was used to anesthetize the skin overlying the target. A 20-gauge Lebron needle was advanced to the midline epidural space in a left parasagittal approach using loss of resistance to contrast technique under fluoroscopic AP and contralateral oblique views. There was no evidence of heme or CSF and no paresthesias were elicited with needle placement. Confirmation of epidural needle placement was performed with 1cc of omnipaque 180. Next 3 ml 0.5% lidocaine mixed with 80 mg triamcinilone was administered epidurally with no pain elicited on injection. The needle tract tubing was then cleared with 1 ml of 0.5% lidocaine. The needle was removed, skin cleansed and a sterile bandage was applied. The patient tolerated the procedure well and no complications were encountered. Following the procedure the patient's vital signs were stable. The patient was discharged home in good condition with post-procedural instructions. Time Out: Immediately prior to the procedure, the following was verbally confirmed that there is a signed consent form and that the correct patient, planned procedure, site and side are consistent with documentation and that necessary equipment and/or blood products are available prior to the start of the case. Complications: none EBL: <2 cc Coding 33067 - Caudal/Lumbar Epidural/Interlaminar with fluoroscopy Procedure code (CPT) selection complete Assessment & Plan Assessment & Plan (1) Lumbar radicular pain: Code(s): M54.16 - Radiculopathy, lumbar region Category: Medical Plan Patient is status post interlaminar L3/4 DOMINIQUE. Patient tolerated procedure well and was discharged home in stable condition with discharge instructions. All questions were answered. We will follow-up via telephone or in clinic to assess response to therapy. A follow-up appointment was made during today's visit. Orders: Orders FL guidance in treatment room 07/26/24 M54.16 - Radiculopathy, lumbar region Coding Level of Care Code Procedure Only Diagnoses Lumbar radicular pain M54.16 CPT Codes Coding - Joint 11: 55143 - Caudal/Lumbar Epidural/Interlaminar with fluoroscopy ([id number])
[2024-07-26 11:47] VITALS: BP 137/83; PULSE 83; RESP 16; O2SAT 97
== END 2024-07-26 11:47 | disposition home or self-care (01) ==
LOC: HO.PMCPRC 11:06
PROVIDERS: PCP Family Medicine; Visit Provider Internal Medicine
DX: M54.16 Radiculopathy, lumbar region (principal)
CPT/HCPCS: 62323

== ENCOUNTER 2024-08-22 10:31 | Outpatient (REF) | payer OTHER, SELFPAY ==
--- NOTE | ~2024-08-22 | XR_ITS ---
EXAMINATION: XR LUMBOSACRAL SPINE CLINICAL INFORMATION: M54.16 - Radiculopathy, lumbar region COMPARISON: None available. TECHNIQUE: 7 views of the lumbar spine, inclusive of flexion and extension views, were obtained. FINDINGS: There are 5 nonrib-bearing lumbar segments and lumbarization of the S1 segment. L2-3: With flexion and extension, there is borderline instability. Retrolisthesis measures 6 mm during extension and 3 mm during flexion. There is no sign of instability otherwise. Facet sclerosis and ossified center present at L4-5 and L5-S1. There is moderate to severe disc space narrowing at T12-L1 and L1-2. L2-3 demonstrates mild disc space narrowing. Oblique views demonstrate no pars defect. XR/XR lumbar spine 6V w bending IMPRESSION: L2-3: Borderline instability during flexion and extension. Electronically signed by: Brandon Quintero MD 08/22/2024 01:22 PM EDT
--- OUTSIDE RECORDS SUMMARY | 2024-08-22 11:55 | XMS_ITS | Data Portability ---
Author Organization [place] [facility] [id number] Address [address] [place] [address] Assessment No assessment recorded. Plan of Treatment [...] By Organization Details Last Modified Time 12/12/2023 [id number] coughing up blood: care instructions [email or web address] Not available 12/12/2023 20:41:48 Reason for Referral Emergency Medicine Referral for Hemoptysis Referring Physician: Luciana Stewart, Urgent Care, Encounter Date: 12/12/2023 Problems Name Problem SNOMED Code Status Onset Date Resolution Date Notes Provider Name and Address Organization Details Recorded Time Arthroplasty of knee Active Janice O'Macho null, [place] - [facility] 19:47:16 Attention deficit hyperactivity disorder 286134416 Active Janice O'Macho null, [place] - [facility] 19:47:30 Cholesterol level - finding 634503044 Active Janice O'Macho null, PA - [facility] 19:48:12 Acute non-ST segment elevation myocardial infarction 111964257 Active Janice O'Macho null, PA - [facility] 19:50:14 Migraine 71810522 Active Janice O'Macho null, PA - [facility] 4 19:50:28 Hypertensive disorder 21886167 Active Janice Hausern null, PA - [facility] 4 19:51:20 Blackwell's esophagus 436592069 Active Janice Buzz'Macho null, PA - [facility] 4 19:52:11 Large prostate 232896670 Active Janice GeorginaMacho null, [place] - [facility] 4 19:53:37 Hemoptysis 86878613 Active 2023 Luciana Stewart, ANAHI [address] , [place], [address] , [place] - [facility] 20:40:04 Problem Notes None recorded. Medical Equipment None Reported. Allergies Allergen ID Allergen Name Allergen Category Reaction Reaction Severity Criticality Documentation Date Start Date Code Code System Note Provider Name and Address Organization Details Recorded Time 9050637 amoxicill in medicatio n hives moderate Not [...] Updated DateTime 4 175.26 cm 37.2 kg/m2 327158. 28 g 98 % 98 % 78 /min 97.9 [degF] 122 mm[Hg] 81 mm[Hg] Janice CARVER [email or web address] 19:41:13 Social History Question Answer Notes LastModified by Organizat ion Details LastModified Time Tobacco Smoking Status Current Every Day Smoker [facility] 12/12/2023 19:54:53 Have You Had A [...] Functional Status Question Answer Note LastModified by Organizat ion Details LastModified Time How many times [...] SNOMED-CT Code Diagnosis ICD10 Code Diagnosis Note [id number] [facility] [address] [facility] [place] [address] 10/20/2016 12:32:40 10/20/2016 12:58:36 [id number] [address] [place] [address] 09/20/2019 13:59:39 09/20/2019 15:06:02 [id number] [address] [place] [address] 10/20/2016 19:01:22 10/20/2016 19:01:40 [id number] Luciana [place] [address] [address] 12/12/2023 19:03:52 12/12/2023 20:44:05 Hemoptysis [id number] R04.2 We are limited in our diagnostic [...] Paul Member ID Guarantor Name 12/12/2023 1 [facility] (MEDICARE REPLACEMENT /ADVANTAGE - HMO) Enio Villalta [id number] Enio Villalta 12/12/2023 1 [facility] [id number] Enio Villalta [id number] Enio Villalta Notes Date Note Type Note [...] a deep breath Luciana Stewart NP [address] [place], [address], [place] - [facility] 12/17/2023 08:47:16
--- OUTSIDE RECORDS SUMMARY | 2024-08-22 11:55 | XMS_ITS | Encounter Summary ---
Author Organization [facility] Address [address] [place] [address] Care Team Providers Care Rn Child Name Role Phone Pcp, No Primary Care Provider Unavailabl e Encounter Details Date Type Department Care Team ([facility] Contact Info) Description 05/16/2024 Procedure Pass [facility], Radiology (CT Scan) [address] [place] [address] Social History Tobacco Use Types Packs/Day Years [...] on filedocumented in this encounter Care Teams Rn Child Relationship Specialty Start Date End Date Pcp, [place] [address] PCP - General 05/15/24 documented as of this encounter
--- OUTSIDE RECORDS SUMMARY | 2024-08-22 11:55 | XMS_ITS ---
Author Name [facility] Organization Unknown Allergies Allergen Reaction Severity Comment Documented Date Source Statu s AMOXICILLIN HIVES 05/15/2024 [facility] active Problems Problem Status Onset Date Problem Type Date of Resoluti on Source Left lower quadrant abdominal pain active EncounterDiagnosisAct CTMDSX H Encounters Encounter Type Encounter Reason Primary Diagnosis Location Date Emergency Left lower quadrant pain Left lower quadrant pain [facility] 05/15/2024 Care Team Organization Name Specialty Phone Email Start Date End Da [facility] 05/22/2024 [facility] 05/16/2024
== END 2024-08-22 10:32 | disposition home or self-care (01) ==
LOC: HO.XRAY 10:31
PROVIDERS: PCP Family Medicine; Visit Provider Internal Medicine
DX: M54.16 Radiculopathy, lumbar region (principal)
CPT/HCPCS: 72114

== ENCOUNTER 2024-08-22 10:31 | Outpatient (AMB) | payer OTHER, SELFPAY ==
--- NOTE | 2024-08-22 10:34 | A.OFFVIS_ITS ---
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 Allergies amoxicillin Allergy (Intermediate, Verified 08/22/24 10:36) Hives Medication List - Last Reconciled 08/22/24 by Kelly Tamez LPN acetaminophen-codeine 300-30 mg 1 tab PO QID PRN aspirin (Adult Aspirin Regimen) 81 mg PO DAILY atorvastatin 80 mg PO DAILY dextroamphetamine-amphetamine 30 mg ER (Adderall XR) 1 cap PO DAILY gabapentin 400 mg PO TID methocarbamol 500 mg PO TID PRN metoprolol succinate ER 12.5 mg PO DAILY nitroglycerin mg sublingual pantoprazole 40 mg PO BID ticagrelor (Brilinta) 90 mg PO BID HPI HPI s/p L3-L4 interlaminar DOMINIQUE: Details: History of Present Illness The patient is a 53-year-old male presenting with chronic lower back pain. The discomfort began approximately a month ago following an injection on July 27, which initially provided significant relief. However, the discomfort has gradually returned, particularly in the lower back, and is exacerbated by certain movements such as twisting. The patient also reports a history of sciatica, which is currently less frequent and severe, manifesting only in brief episodes. He has been able to maintain his work schedule and engage in activities such as hiking, indicating some functional improvement. The patient has a history of facet joint degeneration, particularly at the L4-5 and L5-S1 levels, which are described as severely degenerated with loss of joint definition. 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 Additionally, the patient has lumbar spinal stenosis, most pronounced at the L4- 5 level, described as a narrowing of the spinal canal. There is also a mention of potential spinal instability, though it is not currently severe enough to warrant immediate surgical intervention. Pain Description - Onset: Approximately one month ago, post-injection. - Quality: Described as discomfort rather than pain, with episodes of sciatica. - Location: Primarily in the lower back, with occasional sciatic pain. - Exacerbating factors: Twisting movements, particularly to the left. - Relieving factors: Initial relief from injection, able to perform activities like hiking. Physical Exam - Musculoskeletal: Facet loading test positive on both left and right sides, indicating facet joint pain Results - Imaging: X-ray ordered to assess spinal instability. Pain Management - Affect: Patient reports improved mood due to reduced pain and ability to engage in activities. - Analgesia: Initial relief from injection, current discomfort managed without additional analgesics. - Activities of Daily Living: Able to work and hike, indicating functional improvement. - Aberrant Drug Related Behaviors: No signs of medication misuse reported. [facility] Medical History (Updated 08/22/24 @ 11:10 by James Lisa MD) History of myocardial infarction Physical Exam Vital Signs: Last Vital Signs Pulse 66 08/22/24 10:35 Resp 16 08/22/24 10:35 BP 135/87 08/22/24 10:35 Pulse Ox 98 08/22/24 10:35 Oxygen Delivery Method Room Air 08/22/24 10:35 BMI result Body Mass Index 35.7 Assessment & Plan Assessment & Plan (1) Lumbar radicular pain: Code(s): M54.16 - Radiculopathy, lumbar region Category: Medical (2) Lumbar spondylosis: Code(s): M47.816 - Spondylosis without myelopathy or radiculopathy, lumbar region Category: Medical Plan Plan - Bilateral L3, L4, L5 diagnostic medial branch nerve blocks for facet mediated pain. - Consider radiofrequency ablation if diagnostic injections confirm facet joint pain. - Discuss potential for minimally invasive lumbar decompression for stenosis at L4-5 if radicular symptoms persist. - Monitor for spinal instability and consider surgical intervention if condition worsens. Dynamic x-ray were ordered. - Continue current activity level to maintain functional status, avoiding excessive bending. Patient was informed and verbally consented to the use of an ambient scribe for clinic note documentation during this visit. Discussion Notes I discussed with the patient the current status of his lumbar spinal stenosis and facet joint degeneration, emphasizing the importance of diagnostic facet injections to confirm the source of pain. We reviewed the potential benefits and limitations of radiofrequency ablation and minimally invasive lumbar decompression as future treatment options. I advised monitoring for any signs of worsening spinal instability and discussed the possibility of surgical intervention if necessary. Patient Instructions - Follow up with diagnostic facet injections as scheduled. - Maintain current activity level, avoiding excessive bending to prevent exacerbation of symptoms. - Monitor for any increase in pain or new symptoms and report them promptly. Coding Level of Care Code Est Pt Level 4 (00255) Diagnoses Lumbar radicular pain M54.16 Lumbar spondylosis M47.816
[2024-08-22 10:35] VITALS: BP 135/87; PULSE 66; RESP 16; O2SAT 98; BMI 35.7
== END 2024-08-22 11:01 | disposition home or self-care (01) ==
LOC: HO.PMC 10:31
PROVIDERS: PCP Family Medicine; Visit Provider Internal Medicine
DX: M54.16 Radiculopathy, lumbar region (principal); M47.816 Spondylosis without myelopathy or radiculopathy, lumbar region
CPT/HCPCS: 99214

== ENCOUNTER → 2024-08-22 11:17 | Outpatient (BNV) | payer OTHER, SELFPAY | PROVIDERS: PCP Family Medicine; Visit Provider Radiology Diagnostic Radiology | DX: M54.16 Radiculopathy, lumbar region (principal) | CPT/HCPCS: 72114 ==

== ENCOUNTER 2024-10-04 07:33 | Outpatient (REF) | payer OTHER, SELFPAY ==
--- NOTE | ~2024-10-04 | FL_ITS ---
EXAMINATION: FL GUIDANCE ONLY HISTORY: M54.16 - Radiculopathy, lumbar region COMPARISON: None available. TECHNIQUE: Fluoroscopy time: 0.1 minute. Cumulative Dose: 3.78 mGy. DAP: 0.412 mGym2 Images: 3. FINDINGS: Fluoroscopic spot films of the lumbar spine demonstrate needles and contrast material in the regions of the bilateral L3-4, L4-5, and L5-S1 facet joints. FL/FL guidance in treatment room IMPRESSION: Fluoroscopy during procedure. Please see procedure report for additional information. Electronically signed by: James Hanley MD 10/04/2024 01:45 PM EDT
--- OUTSIDE RECORDS SUMMARY | 2024-10-04 07:35 | XMS_ITS | Clinical Summary ---
Author Organization [facility] Address [address] [place] [address] Phone Care Team Providers Care Nutrition Manager Name Role Phone Stevan Garza MD Primary Care Prov ider Allergies Active Allergy Reactions Criticality Noted Date Comments Amoxicillin 12/31/2016 Medications GABAPENTIN ORAL Take 200 mg by mouth 2 (two) times a day. Active IBUPROFEN ORAL Activ e azithromycin (ZITHROMAX) 250 MG tablet Take one tablet by mouth for 4 days 4 tablet Active Additional Information Patient not taking.Reported on 06/28/2022 atorvastatin calcium (ATORVASTATIN ORAL) Take by mouth. Activ e OMEPRAZOLE ORAL Take by mouth. Active pantoprazole (PROTONIX) 40 MG tablet Take 40 mg by mouth 2 (two) times a day. Active Active Problems No known active problems Social History Tobacco Use Types Packs/Day Years Used Date Smoking Tobacco: Every Day Cigarettes Smokeless Tobacco: Current Tobacco Cessation:Ready to Q uit: Not Asked; Counseling Given: Not Answered Alcohol Use Standard Drinks/Week Comments Yes 2 (1 standard drink = 0.6 oz pur e alcohol) Education Answer Date Recorded Are you interested in more education? Not on gee e 06/18/2022 Are you concerned about learning? Not on file 06/18/2022 No 06/18/2022 No 06/18/2022 Digital Access Answer Date Recorded No 07/19/2022 No 07/19/2022 Reliable internet access at home? Not on file 07/19/2022 Device with a working camera? Not on file Intimate Partner Violence Answer Date R ecorded Are you denied basic needs s uch as food, clothing, or medical care? No 07/17/2023 In the past 12 months have y ou been in a relationship with a person who hurts, threatens, or tries to control you? No 07/17/2023 Are you denied basic needs s uch as food, clothing, or medical care? No 07/17/2023 In the past 12 months have y ou been in a relationship with a person who hurts, threatens, or tries to control you? No 07/17/2023 Sex and Gender Information Value Date Recorded Sex Assigned at Male 05/05/2019 4:40 AM EDT Legal Sex Male 10:54 AM EDT Gender Identity Male 05/05/2019 4:40 AM EDT Sexual Orientation Straight 07/18/2023 12 :00 AM EDT Last Filed Vital Signs Vital Sign Reading Time Taken Comments Blood Pressure 131/91 07/18/2023 1:45 AM EDT Pulse 87 07/17/2023 11:35 PM EDT Temperature 36.8 C (98.2 F) 07/17/2023 11:35 PM EDT Respiratory Rate 18 07/17/2023 11:35 PM EDT Oxygen Saturation 96% 07/18/2023 1:45 AM EDT Inhaled Oxygen Concentration - - Weight 108.9 kg (240 lb) 09/17/2022 11:50 AM EDT Height 177.8 cm (5' 10 ) 09/17/2022 11:50 AM EDT Body Mass Index 34.44 09/17/2022 11:50 AM EDT Plan of Treatment Health Maintenance Due Date Last Done Comments DEPRESSION SCREENING 1980 SMOKING Hx and SMOKELESS TOBACCO SCREENING 1981 HIV ONE-TIME SCREENING (18-6 5 YEARS) 1986 PNEUMOCOCCAL VACCINES (50+ years) (1 of 2 - PCV) 11/09/1987 COLOGUARD 2013 COLONOSCOPY 2013 COLORECTAL CANCER SCREENING 2013 FIT TEST 2013 FOBT 2013 SIGMOIDOSCOPY 2013 VIRTUAL COLONOSCOPY 2013 ZOSTER VACCINES (2 of 2) 02/24/2021 12/30/2020 COVID-19 VACCINE (4 - 2023-2 5 season) 2023 12/30/2020, 06/01/2020, 05/11/2020 Adult Td,Tdap Booster 06/11/2026 06/11/2016 SCREENING FOR DIABETES 10/18/2026 , 07/18/2023 LIPID PANEL 09/01/2028 09/02/2023, 09/02/2023 HEPATITIS C SCREENING Completed 06/04/2022 , 06/04/2022 HEPATITIS A VACCINES Aged Out No long er eligible based on patient's age to complete this topic HIB VACCINES Aged Out No longer eligi ble based on patient's age to complete this topic MENINGOCOCCAL VACCINES (ACWY) Aged Out No longer eligible based on patient's age to complete this topic MENINGOCOCCAL VACCINES (B) Aged Out N o longer eligible based on patient's age to complete this topic Medical Devices Implanted Type Area News Content Specialist Device Identifier Shelf Expiration Date Model / Serial / Lot Bilat Knee Replacements Procedures Procedure Name Priority Date/Time Associated Diagnosis Comments HEPATITIS C ANTIBODY, QUALITATIVE Routine 06/04/2022 2:30 PM EDT Need for hepatitis C screening test from Last 3 Months or Most Recently Relevant to Health Maintenance Results * Hepatitis C antibody, qualitative (06/04/2022 2:30 PM EDT) HCV NON-REACTIV E NON-REACTI VE [facility] Blood 06/04/2022 2:30 PM EDT 06/04/2022 2:39 PM EDT us Tammie Serna PA-C LAB BLOOD ORDERABLES Final Resu lt [address] [address] from Last 3 Months or Most Recently Relevant to Health Maintenance Insurance [facility] Care Teams Nutrition Manager Relationship Specialty Start Date End Date Stevan Garza MD [address] [place] [phone] [email or web address] PCP - General Family Medicine 07/17/23 Additional Source Comments The information contained in this document represents components of the legal health record. It is not the complete legal health record.[facility]
--- OUTSIDE RECORDS SUMMARY | 2024-10-04 07:35 | XMS_ITS | Encounter Summary ---
Author Organization [facility] Address [address] [place] [address] Care Team Providers Care Die Mounter Name Role Phone Pcp, No Primary Care Provider Unavailabl e Encounter Details Date Type Department Care Team ([facility] Contact Info) Description 05/16/2024 Procedure Pass [facility], Radiology (CT Scan) [address] [place] [id number] Social History Tobacco Use Types Packs/Day Years [...] on filedocumented in this encounter Care Teams Die Mounter Relationship Specialty Start Date End Date Pcp, [place] [address] PCP - General 05/15/24 documented as of this encounter
== END 2024-10-04 07:34 | disposition home or self-care (01) ==
LOC: CF 07:33
PROVIDERS: Visit Provider Internal Medicine
DX: M47.26 Other spondylosis with radiculopathy, lumbar region (principal)
CPT/HCPCS: 64493; J2003; J2795; Q9967

== ENCOUNTER 2024-10-04 11:45 | Outpatient (AMB) | payer OTHER, SELFPAY ==
[2024-10-04 11:54] VITALS: BP 144/88; PULSE 66; RESP 16; O2SAT 97; BMI 35.7
--- NOTE | 2024-10-04 11:54 | MHC.OFFVIS ---
Vital Signs 10/04/24 11:54 10/04/24 12:30 Height 5 ft 9.5 in Weight 245 lb BMI 35.7 BP 144/88 H 149/86 H Blood Pressure Location Lt brachial Lt brachial Position Sitting Sitting Respiration 16 16 Pulse 66 65 Pulse Source Pulse Oximeter Pulse Oximeter Pulse Oximetry (%) 97 95 Oxygen Delivery Method Room Air Room Air Intake Visit Reasons: Dalton Dx L3-L4-L5 MBB Allergies amoxicillin Allergy (Intermediate, Verified 08/22/24 10:36) Hives HPI HPI Dalton Dx L3-L4-L5 MBB: Details: Patient presents for scheduled procedure. Denies any recent cough, cold, infection, fever or other significant changes in medical history since last office visit. [facility] Medical History (Updated 08/22/24 @ 11:10 by James Lisa MD) History of myocardial infarction Physical Exam Vital Signs: Last Vital Signs Pulse 65 10/04/24 12:30 Resp 16 10/04/24 12:30 BP 149/86 H 10/04/24 12:30 Pulse Ox 95 10/04/24 12:30 Oxygen Delivery Method Room Air 10/04/24 12:30 BMI result Body Mass Index 35.7 Office Procedures Details: Lumbar Medial Branch Block, Bilateral L3, L4 medial branches and L5 Dorsal Ramus (2 levels, 3 nerves) After obtaining written consent, pre-procedure blood pressure and pulse were recorded and are in the nursing record for review. The patient was placed in a prone position. The respective lumbosacral area was prepped with chloraprep and draped in sterile fashion. The skin over the target medial branch nerves was anesthetized with 0.5% lidocaine. A 22 gauge 3.5 inch needle was inserted into the target medial branch nerve under fluoroscopic guidance. No paresthesias were elicited with needle placement and aspiration was negative for blood and CSF. Next, 0.2cc of omnipaque 180 was injected to verify positioning in AP and oblique imaging. Next 0.5 ml 0.5% ropivicaine was injected (0.5cc total per level). The identical procedure was performed at the remaining levels. The skin was cleansed and a sterile bandage was applied. Following the procedure the patient's vital signs were stable. The patient tolerated the procedure well and no complications were encountered. Following the procedure the patient's vital signs were stable. The patient was discharged home in good condition with post-procedural instructions. Time Out: Immediately prior to the procedure, the following was verbally confirmed that there is a signed consent form and that the correct patient, planned procedure, site and side are consistent with documentation and that necessary equipment and/or blood products are available prior to the start of the case. Complications: none EBL: <5 cc 58699 - with Fluoroscopy (L3-L4) 06631 - second level with Fluoroscopy (L3-L4-L5) Procedure code (CPT) selection complete Assessment & Plan Assessment & Plan (1) Lumbar spondylosis: Code(s): M47.816 - Spondylosis without myelopathy or radiculopathy, lumbar region Category: Medical Plan Patient is status post bilateral diagnostic L3, L4 medial branches and L5 dorsal ramus blocks. Patient tolerated procedure well and was discharged home in stable condition with discharge instructions. All questions were answered. We will follow-up via telephone or in clinic to assess response to therapy. A follow-up appointment was made during today's visit. Orders: Orders FL guidance in treatment room Today M47.816 - Spondylosis without myelopathy or radiculopathy, lumbar region, M54.16 - Radiculopathy, lumbar region AMB Medial Branch Block - Lumbar/Sacral Today M47.816 - Spondylosis without myelopathy or radiculopathy, lumbar region Coding Level of Care Code Procedure Only Diagnoses Lumbar spondylosis M47.816 CPT Codes Medial Branch Block Lumbar/Sacral1 - Branch Block Lumb/Sac 1: 48229 - with Fluoroscopy (L3-L4) ([id number]) Medial Branch Block Lumbar/Sacral1 - Branch Block Lumb/Sac 2: 44295 - second level with Fluoroscopy (L3-L4-L5) ([id number])
[2024-10-04 12:30] VITALS: BP 149/86; PULSE 65; RESP 16; O2SAT 95
== END 2024-10-04 12:30 | disposition home or self-care (01) ==
LOC: HO.PMCPRC 11:45
PROVIDERS: PCP Family Medicine; Visit Provider Internal Medicine
DX: M47.816 Spondylosis without myelopathy or radiculopathy, lumbar region (principal)
CPT/HCPCS: 64494

== ENCOUNTER 2024-10-08 10:16 | Outpatient (AMB) | payer OTHER, SELFPAY ==
--- NOTE | 2024-10-08 10:17 | MHC.OFFVIS ---
Vital Signs 10/08/24 10:19 Height 5 ft 9.5 in Weight 242 lb BMI 35.2 BP 151/89 H Blood Pressure Location Lt brachial Position Sitting Respiration 16 Pulse 76 Pulse Source Pulse Oximeter Pulse Oximetry (%) 99 Oxygen Delivery Method Room Air Intake Visit Reasons: s/p Dalton Dx L3-L4-L5 MBB [employer] Required: No Accompanied by: Spouse Allergies amoxicillin Allergy (Intermediate, Verified 10/08/24 10:20) Hives Medication List - Last Reconciled 10/08/24 by Kelly Tamez LPN aspirin (Adult Aspirin Regimen) 81 mg PO DAILY atorvastatin 80 mg PO DAILY dextroamphetamine-amphetamine 30 mg ER (Adderall XR) 1 cap PO DAILY gabapentin 400 mg PO TID metoprolol succinate ER 12.5 mg PO DAILY nitroglycerin mg sublingual oxybutynin chloride 5 mg PO BID pantoprazole 40 mg PO BID ticagrelor (Brilinta) 90 mg PO BID HPI HPI s/p Dalton Dx L3-L4-L5 MBB: Details: History of Present Illness The patient is a 53-year-old male presenting with follow-up after diagnostic lumbar medial branch blocks. The patient has been experiencing lumbar radiculopathy and sciatica, which have been persistent issues. He reports the MBBs provided about 50% relief for 6 hours. However, the relief was temporary, and the pain has since returned, affecting his daily activities and work performance. The patient now describes the pain as primarily affecting the left leg, with minimal involvement of the right leg. He experiences increased pain with walking and hip movement, and finds some relief when leaning over objects like a shopping cart. The patient has significant L4/5 facet joint arthropathy but diagnostic injections to the facet joints did not provide significant relief, indicating a complex pain management challenge. Additionally, mild lumbar instability was noted at the L2-3 level, although this is not the primary location of his radicular source. Pain Description - Onset: Pain initially improved after lumbar medial branch blocks but not enough to merit RFA. DOMINIQUE provided 100% relief for >4 weeks with gradual return of symptoms - Quality: Pain primarily affects the left leg, with minimal right leg involvement. - Exacerbating factors: Walking and hip movement increase pain. - Relieving factors: Leaning over objects like a shopping cart provides some relief. - Interference: Pain affects daily activities and work performance. Physical Exam - Appears afebrile. - Alert and oriented. - Mood and affect appropriate. - Follows and participates in conversation appropriately. - Respiratory effort is unlabored. - Able to transition from sit to stand unassisted. - Ambulates with bilaterally normal heel strike and toe off. - Able to stand and walk on toes and heels. - Flexion helps relieve pain; leans on carts while shopping Results - Imaging: Mild lumbar instability noted at L2-3 level. No instability at L4/5. Significant LF hypertrophy and stenosis at L4/5 Pain Management - Affect: Pain impacts daily activities and work performance. - Analgesia: Previous lumbar medial branch blocks provided temporary relief. - Activities of Daily Living: Pain affects walking and standing, requiring adjustments like leaning over objects. [facility] Medical History (Updated 10/09/24 @ 09:06 by James Lisa MD) History of myocardial infarction Physical Exam Vital Signs: Last Vital Signs Pulse 76 10/08/24 10:19 Resp 16 10/08/24 10:19 BP 151/89 H 10/08/24 10:19 Pulse Ox 99 10/08/24 10:19 Oxygen Delivery Method Room Air 10/08/24 10:19 BMI result Body Mass Index 35.2 Assessment & Plan Assessment & Plan (1) Lumbar radicular pain: Code(s): M54.16 - Radiculopathy, lumbar region Category: Medical (2) Spinal stenosis, lumbar region with neurogenic claudication: Code(s): M48.062 - Spinal stenosis, lumbar region with neurogenic claudication Category: Medical (3) Lumbar spondylosis: Code(s): M47.816 - Spondylosis without myelopathy or radiculopathy, lumbar region Category: Medical Plan Plan - Plan to repeat interlaminar L3/4 epidural injection to provide temporary relief before vacation. Last injection was 100% relief for >4 weeks. - Consider minimally invasive lumbar decompression at L4/5 for if insurance approves given neurogenic claudication history of pain with ambulation that improves with rest. - Explore cortisone injection into facet joints at L4-5 for potential spondylosis related relief in the future. - Discussed potential for surgical decompression if minimally invasive options are not viable. Patient was informed and verbally consented to the use of an ambient scribe for clinic note documentation during this visit. Discussion Notes During the consultation, I discussed with the patient the current management of his lumbar radiculopathy and sciatica, including the temporary relief provided by previous lumbar medial branch blocks. We explored the option of repeating the epidural injection to provide temporary relief before his upcoming vacation. I also explained the potential benefits and limitations of a minimally invasive lumbar decompression procedure, contingent upon insurance approval. Additionally, we considered the possibility of cortisone injections into the facet joints at L4-5 and discussed surgical decompression as a future option if necessary. Patient Instructions - Schedule an appointment for the repeat epidural injection before your vacation. - Review information on minimally invasive lumbar decompression and discuss with your insurance provider. - Monitor pain levels and note any changes in symptoms. - Follow up with the clinic after the epidural injection for further evaluation and planning. Coding Level of Care Code Est Pt Level 4 (44888) Diagnoses Lumbar radicular pain M54.16 Spinal stenosis, lumbar region with neurogenic claudication M48.062 Lumbar spondylosis M47.816
[2024-10-08 10:19] VITALS: BP 151/89; PULSE 76; RESP 16; O2SAT 99; BMI 35.2
--- OUTSIDE RECORDS SUMMARY | 2024-10-08 11:15 | XMS_ITS | Encounter Summary ---
Author Organization [facility] Address [address] [place] [address] Care Team Providers Care Baker Name Role Phone Pcp, No Primary Care Provider Unavailabl e Encounter Details Date Type Department Care Team ([facility] Contact Info) Description 05/16/2024 Procedure Pass [facility], Radiology (CT Scan) [address] [place] [id number] Social History Tobacco Use Types Packs/Day Years [...] on filedocumented in this encounter Care Teams Baker Relationship Specialty Start Date End Date Pcp, No [place] [address] PCP - General 05/15/24 documented as of this encounter
== END 2024-10-08 10:47 | disposition home or self-care (01) ==
LOC: HO.PMC 10:16
PROVIDERS: PCP Family Medicine; Visit Provider Internal Medicine
DX: M54.16 Radiculopathy, lumbar region (principal); M48.062 Spinal stenosis, lumbar region with neurogenic claudication; M47.816 Spondylosis without myelopathy or radiculopathy, lumbar region
CPT/HCPCS: 99214

== ENCOUNTER 2024-11-22 08:24 | Outpatient (REF) | payer OTHER, SELFPAY ==
--- NOTE | ~2024-11-22 | FL_ITS ---
EXAMINATION: XR FLUOROSCOPY WITH IMAGES CLINICAL INFORMATION: Lumbar pain management. COMPARISON: None available. TECHNIQUE: Fluoroscopy provided to: Dr. Lisa Fluoroscopy time: 0.1 minutes DAP: 0.0181 mGycm2 Images: 1 FINDINGS: Solitary fluoroscopic spot image of the lumbar spine obtained during pain management procedure. Please refer to the full operative report for details. FL/FL guidance in treatment room IMPRESSION: Fluoroscopic guidance. Electronically signed by: Blane Cowan MD 11/22/2024 02:22 PM EDT
--- OUTSIDE RECORDS SUMMARY | 2024-11-22 08:41 | XMS_ITS | Clinical Summary ---
Author Organization [facility] Address [address] [place] [phone] Phone Care Team Providers Care Conditioning Machine Operator Name Role Phone Stevan Garza MD Primary [...] SMOKELESS TOBACCO SCREENING 1981 HIV ONE-TIME SCREENING (18-65 YEARS) 1986 PNEUMOCOCCAL VACCINES (50+ years) (1 of 2 - PCV) 11/09/1987 COLOGUARD 2013 COLONOSCOPY 2013 COLORECTAL CANCER SCREENING 2013 FIT TEST 2013 FOBT 2013 SIGMOIDOSCOPY 2013 VIRTUAL COLONOSCOPY 2013 ZOSTER VACCINES (2 of 2) 02/24/2021 12/30/2020 INFLUENZA VACCINE (#1) 2024 , 12/05/2020, 12/06/2019, Additional history exists COVID-19 VACCINE ( season) 2024 12/30/2020, 06/01/2020, 05/11/2020 Adult Td,Tdap Booster 06/11/2026 06/11/2016 SCREENING FOR DIABETES 10/18/2026 10/19/2023, 2023 LIPID PANEL 09/01/2028 09/02/2023, 09/02/2023 HEPATITIS C SCREENING Completed 06/04/2022, 023 HEPATITIS A VACCINES Aged Out No long [...] this topic Medical Devices Implanted Type Area Utilization Reviewer Device Identifier Shelf Expiration Date Model / Serial / Lot Bilat Knee Replacements Procedures Procedure Name Priority Date/Time Associated Diagnosis Comments HEPATITIS C ANTIBODY, QUALITATIVE Routine 06/04/2022 2:30 PM EDT Need for hepatitis C screening test from Last 3 Months or Most Recently Relevant to Health Maintenance Results * Hepatitis C antibody, qualitative (06/04/2022 2:30 PM EDT) HCV NON-REACTIV E NON-REACTI VE [facility] Blood 06/04/2022 2:30 PM EDT 06/04/2022 2:39 PM EDT us Tammie Serna PA-C LAB BLOOD ORDERABLES Final Resu lt [facility] [address] [place] [address] from Last 3 Months or Most Recently Relevant to Health Maintenance Insurance ED [facility] [place] [address] [place] [address] [place] [address] [place] [address] [facility] [place] [address] HMO HMO Care Teams Conditioning Machine Operator Relationship Specialty Start Date End Date Stevan Garza MD [address] [place] [phone] [email or web address] MD PCP - General Family Medicine 07/17/23 Additional Source Comments The information contained in this document represents components of the legal health record. It is not the complete legal health record.[facility]
--- OUTSIDE RECORDS SUMMARY | 2024-11-22 08:42 | XMS_ITS | Encounter Summary ---
Author Organization [facility] Address [address] [facility] [address] [place] [address] Phone Care Team Providers Care Nut Sheller Name Role Phone Stevan Garza MD Primary Care Prov ider Stevan Garza MD Primary Care Prov ider Encounter Details Date Type Department Care Team (Latest Contact Info) Description 06/04/2022 Transcribe Orders [facility] Laboratory [address] [address] Tammie Serna PA-C [address], [address] [place] [address] [email or web address] Hepatoma (Primary Dx); Need for hepatitis C screening test; Upper abdominal pain; Bloating Social History Tobacco Use Types Packs/Day Years Used Date Smoking Tobacco: Every Day Smokeless Tobacco: Current Alcohol Use Standard Drinks/Week Comments Yes 0 (1 standard drink = 0.6 oz pur e alcohol) Sex and Gender Information Value Date Recorded Sex Assigned at Male 05/05/2019 4:40 AM EDT Legal Sex Male 10:54 AM EDT Gender Identity Male 05/05/2019 4:40 AM EDT Sexual Orientation Straight 07/18/2023 12 :00 AM EDT documented as of this encounter Plan of Treatment Not on file documented as of this encounter Results * Smooth Muscle Antibody (06/04/2022 2:31 PM EDT) SMOOTH MUSCLE AB POSITIVE AT 1:40 [facility] Comment: Radha Stoner M.D., Director Clinical Immunology Laboratory [id number] Normal: Negative at 1:20 Blood 06/04/2022 2:31 PM EDT 06/04/2022 3:10 PM EDT Tammie Serna PA-C LAB BLOOD ORDERABLES Final Resu lt [address] [address] * Anti-Mitochondrial Antibody (AMA) (06/04/2022 2:31 PM EDT) MITOCHONDRIAL AB NEGATIVE AT 1:20 [facility] Comment: Radha Stoner M.D., Director Clinical Immunology Laboratory [id number] Normal: Negative at 1:20 Blood 06/04/2022 2:31 PM EDT 06/04/2022 3:10 PM EDT Tammie Serna PA-C LAB BLOOD ORDERABLES Final Resu lt [address] [address] * Ferritin (06/04/2022 2:30 PM EDT) FERRITIN 306 30 - 400 ug/L [facility] Blood 06/04/2022 2:30 PM EDT 06/04/2022 2:39 PM EDT Tammie Serna PA-C LAB BLOOD ORDERABLES Final Resu lt [facility] [address] [place] [address] * TSH (06/04/2022 2:30 PM EDT) TSH 0.56 0.27 - 4.20 uIU/mL [facility] Blood 06/04/2022 2:30 PM EDT 06/04/2022 2:39 PM EDT Tammie Serna PA-C LAB BLOOD ORDERABLES Final Resu lt Performing Organization Address City/[facility]/ZIP Co de Phone Number [address] [address] * Iron and iron binding capacity (06/04/2022 2:30 PM EDT) IRON 77 45 - 160 ug/dL [facility] IRON BINDING CAPACITY 315 228 - 428 ug/dL [facility] TRANSFERRIN SATURAT. 24 20 - 55 % [facility] Blood 06/04/2022 2:30 PM EDT 06/04/2022 2:39 PM EDT us Tammie Serna PA-C LAB BLOOD ORDERABLES Final Resu lt Performing Organization Address [facility]/ZIP Co de Phone Number [address] [address] * Immunoglobulin A (06/04/2022 2:30 PM EDT) IgA 75 70 - 400 mg/dL [facility] Blood 06/04/2022 2:30 PM EDT 06/04/2022 2:39 PM EDT us Tammie Serna PA-C LAB BLOOD ORDERABLES Final Resu lt Performing Organization Address City/[facility]/ZIP Co de Phone Number [address] [address] * Lipase (06/04/2022 2:30 PM EDT) LIPASE 32 16 - 63 U/L [facility] Blood 06/04/2022 2:30 PM EDT 06/04/2022 2:39 PM EDT us Tammie Serna PA-C LAB BLOOD ORDERABLES Final Resu lt Performing Organization Address City/[facility]/ZIP Co de Phone Number [address] [address] * Hepatitis C antibody, qualitative (06/04/2022 2:30 PM EDT) HCV NON-REACTIV E NON-REACTI VE [facility] Blood 06/04/2022 2:30 PM EDT 06/04/2022 2:39 PM EDT Tammie Serna PA-C LAB BLOOD ORDERABLES Final Resu lt Performing Organization Address City/[facility]/ZIP Co de Phone Number [address] [address] * Hepatitis B surface antibody (06/04/2022 2:30 PM EDT) Pathologist [facility] HBV SURFACE ANTIBODY Negative [facility] Comment: Unvaccinated: Negative Vaccinated: Positive Blood 06/04/2022 2:30 PM EDT 06/04/2022 2:39 PM EDT Tammie Serna PA-C LAB BLOOD ORDERABLES Final Resu lt Performing Organization Address City/[facility] Co de Phone Number [address] [address] * Serum protein electrophoresis W/O Immunoglobulins and Immunofixation (06/04/2022 2:30 PM EDT) TOTAL PROTEIN 7.2 6.3 - 7.9 g/dL [facility] [place] Albumin 3.8 3.4 - 4.7 g/dL [facility] [place] Alpha-1 Globulin 0.3 0.1 - 0.3 g/dL [facility] [place] Alpha-2 Globulin 1.0 0.6 - 1.0 g/dL [facility] [place] Beta-Globulin 1.0 0.7 - 1.2 g/dL [facility] [place] Gamma-Globulin 1.1 0.6 - 1.6 g/dL [facility] [place] A/G Ratio 1.10 [facility]PATH [address] [place] spike Test component not applicable or not reported. g/dL [facility]PATH [address] [place] spike Test component not applicable or not reported. g/dL [facility]PATH [address] Mascorro SEE NOTE [facility] [place] Comment: (NOTE) No apparent monoclonal protein on serum electrophoresis. Blood 06/04/2022 2:30 PM EDT 06/04/2022 2:54 PM EDT us Tammie Serna PA-C LAB BLOOD ORDERABLES Final Resu lt [facility] [address] [place] [address] * (ABNORMAL) Liver fibrosis test (06/04/2022 2:30 PM EDT) Fibrosis score 0.78 [facility] Interpretation (Fibrosis) SEE NOTE [facility]/ [facility] Comment: (NOTE) severe fibrosis Fibro Test Score (f) Metavir Score f>=0 and f<=0.21 : F0 (no fibrosis) f>0.21 and f<=0.27 : F0-F1 (no fibrosis) f>0.27 and f<=0.31 : F1 (minimal fibrosis) f>0.31 and f<=0.48 : F1-F2 (minimal fibrosis) f>0.48 and f<=0.58 : F2 (moderate fibrosis) f>0.58 and f<=0.72 : F3 (advanced fibrosis) f>0.72 and f<=0.74 : F3-F4 (advanced fibrosis) f>0.74 and f<=1.00 : F4 (severe fibrosis) HCV Fibrosis Grade F4 Q [facility] NECROINFLAMM SCORE 0.32 Q [facility] NECROINFLAMM GRADE A1 Q [facility] NECROINFLAMM INTERP SEE NOTE [facility] Comment: (NOTE) minimal activity ActiTest Score (a) Metavir Score a>=0 and a<=0.17 : A0 (no activity) a>0.17 and a<=0.29 : A0-A1 (no activity) a>0.29 and a<=0.36 : A1 (minimal activity) a>0.36 and a<=0.52 : A1-A2 (minimal activity) a>0.52 and a<=0.60 : A2 (significant activity) a>0.60 and a<=0.62 : A2-A3 (significant activity) a>0.62 and a<=1.00 : A3 (severe activity) A2 Macroglobulin 379(H) 106 - 279 mg/dL [facility] Haptoglobin 84 43 - 212 mg/dL [facility] Apolipoprotein A1 106 94 - 176 mg/dL [facility] TOTAL BILIRUBIN 0.8 0.2 - 1.2 mg/dL [facility] GGT 37 3 - 95 U/L [facility] ALT 35 9 - 46 U/L [facility] Specimen/Product ID [id number] [facility] Comments (Chemistry) SEE NOTE [facility] Comment: (NOTE) The reliability of results is dependent on compliance with the preanalytical and analytical conditions recommended by [email or web address]. The tests have to be deferred for: acute hemolysis, acute hepatitis, acute inflammation, extra hepatic cholestasis. The advice of a specialist should be sought for interpretation in chronic hemolysis and Gilbert's syndrome. The test interpretation is not validated in liver transplant patients. Isolated extreme values of one of the components should lead to caution in interpreting the results. In case of discordance between a biopsy result and a test, it is recommended to seek the advice of a specialist. The causes of these discordances could be due to a flaw of the test or to a flaw in the biopsy: i.e. a liver biopsy has a 33% variability rate for one fibrosis stage. FibroTest is interpretable for chronic hepatitis B and C, alcoholic and non alcoholic steatosis. ActiTest is interpretable for chronic hepatitis B and C. The performance characteristics have been determined by [employer]. It has not been cleared or approved by the U.S. Food and Drug Administration. Performance characteristics refer to the analytical performance of the test. [employer]., the associated logo, [employer] and all associated [employer] black are the registered trademarks of [employer]. All third green party black - (R) and (TM) - are the property of their respective owners. (C) [phone] [employer]. All rights reserved. Blood 06/04/2022 2:30 PM EDT 06/04/2022 3:10 PM EDT Tammie Serna PA-C LAB BLOOD ORDERABLES Final Resu lt [facility] [employer]/[facility] [address] [place] [address], [facility] [phone] * C-Reactive Protein (06/04/2022 2:30 PM EDT) Pathologist [facility] C REACTIVE PROTEIN <3.0 0.0 - 4.0 mg/L [facility] Blood 06/04/2022 2:30 PM EDT 06/04/2022 2:39 PM EDT Tammie Serna PA-C LAB BLOOD ORDERABLES Final Resu lt [address] [address] * (ABNORMAL) Comprehensive metabolic panel (06/04/2022 2:30 PM EDT) SODIUM 138 133 - 146 mmol/L [facility] POTASSIUM 4.1 3.3 - 5.1 mmol/L [facility] CHLORIDE 102 96 - 108 mmol/L [facility] CO2 22 21 - 35 mmol/L [facility] BUN 35(H) 6 - 19 mg/dL [facility] CREATININE 1.20 0.5 - 1.5 mg/dL [facility] GLUCOSE 91 70 - 99 mg/dL [facility] ALBUMIN 4.8 3.9 - 4.8 g/dL [facility] TOTAL PROTEIN 7.3 6.5 - 8.0 g/dL [facility] CALCIUM 10.0 8.4 - 10.3 mg/dL [facility] ALKALINE PHOSPHATASE 85 39 - 117 U/L [facility] TOTAL BILIRUBIN 0.7 0.0 - 1.2 mg/dL [facility] AST 28 0 - 37 U/L [facility] ALT 41(H) 0 - 40 U/L [facility] GLOBULIN 2.5 1 - 4.8 g/dL [facility] EGFR 72 >59 mL/min/1.7 3m2 [facility] Comment:Estimated glomerular filtration rate calculated using the CKD-EPI refit equation. ANION GAP 18 10 - 20 mmol/L [facility] Blood 06/04/2022 2:30 PM EDT 06/04/2022 2:39 PM EDT us Tammie Serna PA-C LAB BLOOD ORDERABLES Final Resu lt Performing Organization Address City/[facility]/ZIP Co de Phone Number [address] [address] * (ABNORMAL) CBC (06/04/2022 2:30 PM EDT) WBC 5.81 4.00 - 11.00 K/uL [facility] RBC 5.29 4.23 - 5.82 M/uL [facility] HGB 15.4 13.4 - 17.5 g/dL [facility] HCT 45.9 37.0 - 51.0 % [facility] PLT 129(L) 140 - 430 K/uL [facility] MCV 86.8 78.0 - 97.0 fL [facility] MCH 29.1 25.0 - 33.0 pg [facility] MCHC 33.6 32.0 - 36.0 g/dL [facility] RDW 13.1 11.0 - 15.0 % [facility] MPV 12.6 8.4 - 12.8 fl [facility] Blood 06/04/2022 2:30 PM EDT 06/04/2022 2:39 PM EDT us Tammie Serna PA-C LAB BLOOD ORDERABLES Final Resu lt Performing Organization Address City/[facility]/ZIP Co de Phone Number [address] [address] * Tissue transglutaminase IgA (06/04/2022 2:30 PM EDT) Pathologist [facility] TTG IGA ANTIBODY <1.2 <4.0 (Negative) U/mL [facility] [place] Blood 06/04/2022 2:30 PM EDT 06/04/2022 2:54 PM EDT us Tammie Serna PA-C LAB BLOOD ORDERABLES Final Resu lt [facility] [address] [place] [address] * Antinuclear antibody (CHANELLE) (06/04/2022 2:30 PM EDT) Pathologist [facility] CHANELLE SCREEN ON HEP 2 Negative Negative [facility] Blood 06/04/2022 2:30 PM EDT 06/04/2022 2:39 PM EDT us Tammie Serna PA-C LAB BLOOD ORDERABLES Final Resu lt Performing Organization Address [facility]/ZIP Co de Phone Number [address] [address] * AFP (non-maternal specimens) (06/04/2022 2:30 PM EDT) [facility] AFP (NON-MATERNAL) <1.8 <7.9 ng/mL [facility] Blood 06/04/2022 2:30 PM EDT 06/04/2022 2:39 PM EDT Tammie Serna PA-C LAB BLOOD ORDERABLES Final Resu lt Performing Organization Address City/[facility]/ZIP Co de Phone Number [address] [address] * Mnaqt-3-kfeozfyeepv phenotyping (06/04/2022 2:30 PM EDT) Pathologist [facility] ALPHA 1 ANTITRYPSIN 168 100 - 190 mg/dL [facility] Comment: (NOTE) ADDITIONAL INFORMATION Method: Nephelometry A1A PHENOTYPE MM bands [facility] Comment: (NOTE) A single M isoform is detected. In the context of a normal pwtki-3-yavdkyzbvmf concentration, this is consistent with an MM phenotype. ADDITIONAL INFORMATION Method: Isoelectric Focusing, This assay identifies the phenotype of the circulating eozri-5-orgxbcqwyzb (A1A) protein. If the patient is on replacement therapy or has been recently transfused, the phenotype will detect patient and replacement or transfused plasma A1A protein. This test also cannot detect a null allele which could be responsible for an A1A deficiency. Blood 06/04/2022 2:30 PM EDT 06/04/2022 2:54 PM EDT us Tammie Serna PA-C LAB BLOOD ORDERABLES Final Resu lt [facility] [address] [place] [address] documented in this encounter Visit Diagnoses Diagnosis Hepatoma- Primary Malignant neoplasm of liver, primary Need for hepatitis C screening test Special screening examination for other specified viral diseases Upper abdominal pain Bloating Flatulence, eructation, and gas pain documented in this encounter Additional Health Concerns Infection Onset Date Last Indicated Resolved Time CoV-Risk 07/17/2023 07/18/2023 07/29/2023 1:23 AM EDT documented as of this encounter Care Teams Nut Sheller Relationship Specialty Start Date End Date Stevan Garza MD [email or web address] PCP - General Family Medicine 01/08/19 4 Stevan Garza MD [address] [place] [phone] [email or web address] PCP - General Family Medicine 07/17/23 documented as of this encounter Additional Source Comments The information contained in this document represents components of the legal health record. It is not the complete legal health record.[facility]
--- OUTSIDE RECORDS SUMMARY | 2024-11-22 08:42 | XMS_ITS | Encounter Summary ---
Author Organization [facility] Address [address] [address] Phone Care Team Providers Care Manager Engagement Name Role Phone Stevan Garza MD Primary Care Prov ider Stevan Garza MD Primary Care Prov ider Encounter Details Date Type Department Care Team (Late st Contact Info) Description 09/20/2022 Procedure Pass [facility] Cardiovascular And Interventional Radiology [address] [place] [address] Social History Tobacco Use Types Packs/Day Years Used Date Smoking Tobacco: Every Day Cigarettes Smokeless Tobacco: Current Alcohol Use Standard Drinks/Week Comments Yes 2 [...] with a working camera? Not on file Sex and Gender Information Value Date Recorded Sex Assigned at Male 05/05/2019 4:40 AM EDT Legal Sex Male 10:54 AM EDT Gender Identity Male 05/05/2019 4:40 AM EDT Sexual Orientation Straight 07/18/2023 12 :00 AM EDT documented as of this encounter Plan of Treatment Not on file documented as of this encounter Visit Diagnoses Not on filedocumented in this encounter Additional Health Concerns Infection Onset Date Last Indicated Resolved Time CoV-Risk 07/17/2023 07/18/2023 07/29/2023 1:23 AM EDT documented as of this encounter Care Teams Manager Engagement Relationship Specialty Start Date End Date Stevan Garza MD [email or web address] PCP - General Family Medicine 01/08/19 4 Stevan Garza MD [address] [place] [phone] [email or web address] PCP - General Family Medicine 07/17/23 documented as of this encounter Additional Source Comments The information contained in this document represents components of the legal health record. It is not the complete legal health record.[facility]
--- OUTSIDE RECORDS SUMMARY | 2024-11-22 08:42 | XMS_ITS | Encounter Summary ---
Author Organization [facility] Address [address] [place] [phone] Phone Care Team Providers Care Electronics Department Manager Name Role Phone Stevan Garza MD Primary Care Prov ider Stevan Garza MD Primary Care Prov ider Reason for Referral * MRI/CAT Scan - Closed Specialty Diagnoses / Procedures Referred By Contjason t Referred To Contact Radiology Diagnoses Other specified disorders of adrenal gland Procedures CT Abdomen Only (No Pelvis) CHG CT SCAN OF ABDOMEN COMBO Stevan Garza MD [address] [place] [address] Phone: tel: fax: [email or web address] Referral ID Status Reason Start Date Expiration Date Visits Re quested Visits Authorized [id number] Closed 03/23/2023 05/22/2023 1 1 Encounter Details Date Type Department Care Team (Late st Contact Info) Description 03/23/2023 Transcribe Orders Virtual Department [address] [place] [address] Stevan Garza MD [address] [place] [address] [phone] [email or web address] Other specified disorders of adrenal gland (Primary Dx) Social History Tobacco Use Types Packs/Day Years [...] documented as of this encounter Results * CT ABDOMEN (ADRENAL MASS) WITH AND WITHOUT CONTRAST (05/03/2023 2:51 PM EDT) Anatomical Region Laterality Modality Abdomen, Abdominal Vasculature C omputed Tomography 05/03/2023 5:16 PM EDT Impressions 05/04/2023 6:10 AM EDT 13 mm benign left adrenal adenoma. 7 mm nonobstructing right renal pelvic stone Narrative 05/04/2023 6:[address] ABDOMEN (ADRENAL MASS) WITH AND WITHOUT CONTRAST Referring clinician's provided indication for this examination in Epic: Outside Radiology Order; NODULE OF ADRENAL CORTX TECHNIQUE: Multidetector-row CT of the abdomen was performed before and after administration of intravenous contrast using tailored dose modulation techniques. Images were reconstructed in the axial, coronal, and sagittal planes COMPARISON: CT abdomen/pelvis 06/23/2022 FINDINGS: Lower Chest: Normal. No consolidation or pleural effusions. Liver: No suspicious focal liver lesion. Biliary: No biliary ductal dilatation. Spleen: Punctate splenic granuloma. Pancreas: Normal. No masses or ductal dilatation. Adrenal Glands: 1.4 cm left adrenal nodule is stable since 06/23/2022, and demonstrates washout characteristics on the present examination diagnostic of a benign adrenal adenoma. Kidneys/Ureters: No solid renal mass or hydronephrosis. Benign left lower pole renal cyst. 7 mm right renal pelvic stone, previously located in the upper pole calyx on the prior examination. There is likely mild associated urothelial edema. Bowel: No bowel obstruction or wall thickening. Small periampullary duodenal diverticulum. Colonic diverticulosis. Peritoneum/Retroperitoneum: Normal. No masses, pneumoperitoneum, or fluid. Lymph Nodes: Normal. No lymphadenopathy. Vessels: No abdominal aortic aneurysm. Bones/Soft Tissues: No suspicious focal osseous lesion. Procedure Note Ashutosh Villanueva MD - 05/04/2023 CT ABDOMEN (ADRENAL MASS) WITH AND WITHOUT CONTRAST Referring clinician's provided indication for this examination in Epic:Outside Radiology Order; NODULE OF ADRENAL CORTX TECHNIQUE: Multidetector-row CT of the abdomen was performed before andafter administration of intravenous contrast using tailored dosemodulation techniques. Images were reconstructed in the axial, coronal,and sagittal planes COMPARISON: CT abdomen/pelvis 06/23/2022 FINDINGS: Lower Chest: Normal. No consolidation or pleural effusions. Liver: No suspicious focal liver lesion. Biliary: No biliary ductal dilatation. Spleen: Punctate splenic granuloma. Pancreas: Normal. No masses or ductal dilatation. Adrenal Glands: 1.4 cm left adrenal nodule is stable since 06/23/2022, anddemonstrates washout characteristics on the present examination diagnosticof a benign adrenal adenoma. Kidneys/Ureters: No solid renal mass or hydronephrosis. Benign left lowerpole renal cyst. 7 mm right renal pelvic stone, previously located in theupper pole calyx on the prior examination. There is likely mild associatedurothelial edema. Bowel: No bowel obstruction or wall thickening. Small periampullaryduodenal diverticulum. Colonic diverticulosis. Peritoneum/Retroperitoneum: Normal. No masses, pneumoperitoneum, orfluid. Lymph Nodes: Normal. No lymphadenopathy. Vessels: No abdominal aortic aneurysm. Bones/Soft Tissues: No suspicious focal osseous lesion. IMPRESSION: 13 mm benign left adrenal adenoma. 7 mm nonobstructing right renal pelvic stone us Stevan Bansal MD IMG CT XSPECIALTY ORDERABLES Final Result documented in this encounter Visit Diagnoses Diagnosis Other specified disorders of adrenal gland- Primary Other specified disorders of adrenal gland documented in this encounter Additional Health Concerns Infection Onset Date Last Indicated Resolved Time CoV-Risk 07/17/2023 07/18/2023 07/29/2023 1:23 AM EDT documented as of this encounter Care Teams Electronics Department Manager Relationship Specialty Start Date End Date Stevan Garza MD [email or web address] PCP - General Family Medicine 01/08/19 4 Stevan Garza MD [address] [place] [phone] [email or web address] PCP - General Family Medicine 07/17/23 documented as of this encounter Additional Source Comments The information contained in this document represents components of the legal health record. It is not the complete legal health record.[facility]
--- OUTSIDE RECORDS SUMMARY | 2024-11-22 08:42 | XMS_ITS | Clinical Summary ---
Author Organization [facility] Address [address] [place] [address] Care Team Providers Care Direct Sales Representative Name Role Phone Pcp, No Primary Care Provider Unavailabl e Allergies Active Allergy Reactions Criticality Noted Date Comments Amoxicillin Hives Medium 05/15/2024 Medications HYDROcodone-acet aminophen (Rodman) 5-325 mg tablet Take 1 tablet by mouth every 6 (six) hours if needed for severe pain for up to 3 days. 8 tablet 05/16/2024 Active Social History Tobacco Use Types Packs/Day Years [...] 100 05/15/2024 9:40 PM EDT Temperature 36.7 C (98 F) 05/16/2024 3:38 AM EDT Respiratory Rate 16 [...] Vaccines (1 of 2) 2018 COVID-19 Vaccine (1 - 2023-2 5 season) 2024 Influenza Vaccine (#1) 2024 HIB Vaccines Aged Out No longer eligi ble based on patient's age to complete this topic HPV Vaccines (No Doses Required) Completed Hepatitis A Vaccines Aged Out No long [...] on patient's age to complete this topic Insurance [facility] Care Teams Direct Sales Representative Relationship Specialty Start Date End Date Pcp, No No PCP On File AMIE Borrego [id number] PCP - General 05/15/24
--- OUTSIDE RECORDS SUMMARY | 2024-11-22 08:42 | XMS_ITS | Encounter Summary ---
Author Organization [facility] Address [address] [place] [address] Phone Care Team Providers Care Batch Plant Operator Name Role Phone Stevan Garza MD Primary Care Prov ider Encounter Details Date Type Department Care Team (Latest Contact Info) Description 12/27/2023 Transcribe Orders Virtual Department [address] [place] [address] Tammie Serna PA-C [address] [place] [address] Bloating (Primary Dx); Upper abdominal pain Social History Tobacco Use Types Packs/Day Years [...] documented as of this encounter Visit Diagnoses Diagnosis Bloating- Primary Flatulence, eructation, and gas pain Upper abdominal pain documented in this encounter Care Teams Batch Plant Operator Relationship Specialty Start Date End Date Stevan Garza MD [address] [place] [address] [email or web address] PCP - General Family Medicine 07/17/23 documented as of this encounter Additional Source Comments The information contained in this document represents components of the legal health record. It is not the complete legal health record.[facility]
--- OUTSIDE RECORDS SUMMARY | 2024-11-22 08:42 | XMS_ITS | Encounter Summary ---
Author Organization [facility] Address [address] [address] Phone Care Team Providers Care Electrician Locomotive Name Role Phone Stevan Garza MD Primary Care Prov ider Stevan Garza MD Primary Care Prov ider Reason for Referral * MRI/CAT Scan - Closed Specialty Diagnoses / Procedures Referred By Keesha donald Referred To Contact Radiology Diagnoses Hepatomegaly Abdominal pain, unspecified abdominal location Bloating Procedures CT Abdomen/Pelvis CHG CT SCAN,ABDOMENT AND PELVIS,W CONTRAST Tammie Serna PA-C Phone: tel: fax: [email or web address] Referral ID Status Reason Start Date Expiration Date Visits Re quested Visits Authorized [id number] Closed 06/09/2022 07/09/2022 1 1 Encounter Details Date Type Department Care Team (Latest Contact Info) Description 06/04/2022 Transcribe Orders Virtual Department [address] [place] [address] Tammie Serna PA-C [address] [place] [address] [email or web address] Hepatomegaly (Primary Dx); Abdominal pain, unspecified abdominal location; Bloating Social History Tobacco Use Types Packs/Day [...] as of this encounter Results * CT ABDOMEN/PELVIS WITH CONTRAST (06/23/2022 1:27 PM EDT) Anatomical Region Laterality Modality Abdomen, Pelvis Computed Tomogra phy 06/23/2022 8:48 PM EDT Impressions 06/23/2022 8:53 PM EDT Hepatic steatosis. Nonobstructing right nephrolithiasis. Indeterminate 13 mm left adrenal nodule. RECOMMENDATION: -Consider adrenal mass protocol MRI or CT. -Benign adrenal lesions may be hormonally active with subclinical features, so consider evaluation for endocrine hyperfunction. Narrative 06/23/2022 8:[address] ABDOMEN/PELVIS WITH CONTRAST TECHNIQUE: Multidetector-row CT of the abdomen and pelvis was performed after administration of intravenous contrast using tailored dose modulation techniques. Images were reconstructed in the axial, coronal, and sagittal planes. COMPARISON: None FINDINGS: Lower Chest: Coronary artery calcifications. Liver: Steatosis. No suspicious focal lesion. Biliary: No bile duct dilation. Noninflamed gallbladder. Spleen: No splenomegaly or suspicious focal lesion. Punctate calcified granuloma. Pancreas: No mass or main duct dilation. Adrenal Glands: 13 mm left adrenal nodule. Kidneys/Ureters: 5 mm nonobstructing right upper pole renal calculus. No obstructing urolithiasis, hydronephrosis, or solid renal mass. Left renal cortical cysts. Pelvic Organs/Bladder: Age-appropriate. Bowel: No abnormal wall thickening or distension. Noninflamed periampullary duodenal diverticulum. Noninflamed colonic diverticula. Peritoneum/Retroperitoneum: No free fluid, free air, or mass. Lymph Nodes: No lymphadenopathy. Vessels: No aortic aneurysm. Atherosclerotic changes. Bones/Soft Tissues: No destructive osseous lesion. Degenerative changes. Small bilateral fat-containing inguinal hernias. Procedure Note Brijesh Gibson MD - 06/23/2022 CT ABDOMEN/PELVIS WITH CONTRAST TECHNIQUE: Multidetector-row CT of the abdomen and pelvis was performedafter administration of intravenous contrast using tailored dosemodulation techniques. Images were reconstructed in the axial, coronal,and sagittal planes. COMPARISON: None FINDINGS: Lower Chest: Coronary artery calcifications. Liver: Steatosis. No suspicious focal lesion. Biliary: No bile duct dilation. Noninflamed gallbladder. Spleen: No splenomegaly or suspicious focal lesion. Punctate calcifiedgranuloma. Pancreas: No mass or main duct dilation. Adrenal Glands: 13 mm left adrenal nodule. Kidneys/Ureters: 5 mm nonobstructing right upper pole renal calculus. Noobstructing urolithiasis, hydronephrosis, or solid renal mass. Left renalcortical cysts. Pelvic Organs/Bladder: Age-appropriate. Bowel: No abnormal wall thickening or distension. Noninflamedperiampullary duodenal diverticulum. Noninflamed colonic diverticula. Peritoneum/Retroperitoneum: No free fluid, free air, or mass. Lymph Nodes: No lymphadenopathy. Vessels: No aortic aneurysm. Atherosclerotic changes. Bones/Soft Tissues: No destructive osseous lesion. Degenerative changes.Small bilateral fat-containing inguinal hernias. IMPRESSION: Hepatic steatosis. Nonobstructing right nephrolithiasis. Indeterminate 13 mm left adrenal nodule. RECOMMENDATION: -Consider adrenal mass protocol MRI or CT. -Benign adrenal lesions may be hormonally active with subclinicalfeatures, so consider evaluation for endocrine hyperfunction. Tammie Serna PA-C IM CT ABD/PELVIS Final Result documented in this encounter Visit Diagnoses Diagnosis Hepatomegaly- Primary Abdominal pain, unspecified abdominal location Bloating Flatulence, eructation, and gas pain Hepatomegaly Abdominal pain, unspecified abdominal location Bloating Flatulence, eructation, and gas pain documented in this encounter Additional Health Concerns Infection Onset Date Last Indicated Resolved Time CoV-Risk 07/17/2023 07/18/2023 07/29/2023 1:23 AM EDT documented as of this encounter Care Teams Electrician Locomotive Relationship Specialty Start Date End Date Stevan Garza MD [email or web address] PCP - General Family Medicine 01/08/19 4 Stevan Garza MD [address] [place] [address] [email or web address] PCP - General Family Medicine 07/17/23 documented as of this encounter Additional Source Comments The information contained in this document represents components of the legal health record. It is not the complete legal health record.[facility]
--- OUTSIDE RECORDS SUMMARY | 2024-11-22 08:42 | XMS_ITS | Encounter Summary ---
Author Organization [facility] Address [address] [place] [address] Phone Care Team Providers Care Cable Assembler And Swager Name Role Phone Stevan Garza MD Primary Care Prov ider Stevan Garza MD Primary Care Prov ider Encounter Details Date Type Department Care Team (Late st Contact Info) Description 03/23/2023 Procedure Pass [facility], Ct Scan - [address] [address] Social History Tobacco Use Types Packs/Day Years [...] documented as of this encounter Care Teams Cable Assembler And Swager Relationship Specialty Start Date End Date Stevan Garza MD [email or web address] PCP - General Family Medicine 01/08/19 Stevan Garza MD [address] [place] [phone] [email or web address] PCP - General Family Medicine 07/17/23 documented as of this encounter Additional Source Comments The information contained in this document represents components of the legal health record. It is not the complete legal health record.[facility]
--- OUTSIDE RECORDS SUMMARY | 2024-11-22 08:42 | XMS_ITS | Encounter Summary ---
Author Organization [facility] Address [address] [place] [address] Phone Care Team Providers Care Director Rehabilitation Program Name Role Phone Stevan Garza MD Primary Care Prov ider Stevan Garza MD Primary Care Prov ider Encounter Details Date Type Department Care Team (Latest Contact Info) Description 09/07/2022 Transcribe Orders Virtual Department [address] [place] [address] Tammie Serna PA-C [address] [place] [address] [email or web address] Fatty liver (Primary Dx) Social History Tobacco Use Types [...] as of this encounter Visit Diagnoses Diagnosis Fatty liver- Primary Other chronic nonalcoholic liver disease documented in this encounter Additional Health Concerns Infection Onset Date Last Indicated Resolved Time CoV-Risk 07/17/2023 07/18/2023 07/29/2023 1:23 AM EDT documented as of this encounter Care Teams Director Rehabilitation Program Relationship Specialty Start Date End Date Stevan Garza MD [email or web address] PCP - General Family Medicine 01/08/19 4 Stevan Garza MD [address] [place] [phone] [email or web address] PCP - General Family Medicine 07/17/23 documented as of this encounter Additional Source Comments The information contained in this document represents components of the legal health record. It is not the complete legal health record.[facility]
--- OUTSIDE RECORDS SUMMARY | 2024-11-22 08:42 | XMS_ITS | Encounter Summary ---
Author Organization [facility] Address [address] [place] [address] Care Team Providers Care Chemical Laboratory Technician Name Role Phone Pcp, No Primary Care Provider Unavailabl e Encounter Details Date Type Department Care Team ([facility] Contact Info) Description 05/16/2024 Procedure Pass [facility], Radiology (CT Scan) [address] [place] [address] Social History Tobacco Use Types Packs/Day Years [...] on filedocumented in this encounter Care Teams Chemical Laboratory Technician Relationship Specialty Start Date End Date Pcp, No [place] [address] PCP - General 05/15/24 documented as of this encounter
--- OUTSIDE RECORDS SUMMARY | 2024-11-22 08:42 | XMS_ITS | Encounter Summary ---
Author Organization [facility] Address [address] [place] [address] Care Team Providers Care Net Maker Name Role Phone Pcp, No Primary Care Provider Unavailabl e Encounter Details Date Type Department Care Team ([facility] Contact Info) Description 05/15/2024 Procedure Pass [facility], Radiology (CT Scan) [address] [place] [address] Social History Tobacco Use Types Packs/Day Years [...] on filedocumented in this encounter Care Teams Net Maker Relationship Specialty Start Date End Date Pcp, No [place] [address] PCP - General 05/15/24 documented as of this encounter
--- OUTSIDE RECORDS SUMMARY | 2024-11-22 08:42 | XMS_ITS | Encounter Summary ---
Author Organization [facility] Address [address] [place] [address] Phone Care Team Providers Care Cold Mill Inspector Name Role Phone Stevan Garza MD Primary Care Prov ider Stevan Garza MD Primary Care Prov ider Encounter Details Date Type Department Care Team (Late st Contact Info) Description 06/28/2022 Procedure Pass [facility] Endoscopy Admitting Dept Virtual Department [address] [place] [address] Social History Tobacco Use Types Packs/Day Years Used Date Smoking Tobacco: Every Day Cigarettes Smokeless Tobacco: Current Alcohol Use Standard Drinks/Week Comments Yes 2 (1 standard drink = 0.6 oz pur e alcohol) Education Answer Date Recorded Are you interested in more education? Not on gee e 06/18/2022 Are you concerned about learning? Not on file 06/18/2022 No 06/18/2022 No 06/18/2022 Sex and Gender Information Value Date Recorded [...] documented as of this encounter Care Teams Cold Mill Inspector Relationship Specialty Start Date End Date Stevan Garza MD [email or web address] PCP - General Family Medicine 01/08/19 4 Stevan Garza MD [address] [place] [address] [email or web address] PCP - General Family Medicine 07/17/23 documented as of this encounter Additional Source Comments The information contained in this document represents components of the legal health record. It is not the complete legal health record.[facility]
--- OUTSIDE RECORDS SUMMARY | 2024-11-22 08:42 | XMS_ITS | Encounter Summary ---
Author Organization [facility] Address [address] [facility] [address] [place] [address] Phone Care Team Providers Care Hop Strainer Name Role Phone Stevan Garza MD Primary Care Prov ider Stevan Garza MD Primary Care Prov ider Encounter Details Date Type Department Care Team (Late st Contact Info) Description 06/04/2022 Procedure Pass [facility], Ct Scan - [address] [address] Social History Tobacco Use Types Packs/Day Years [...] documented as of this encounter Care Teams Hop Strainer Relationship Specialty Start Date End Date Stevan Garza MD PCP - General Family Medicine 01/08/19 4 Stevan Garza MD [address] [place] [phone] [email or web address] PCP - General Family Medicine 07/17/23 documented as of this encounter Additional Source Comments The information contained in this document represents components of the legal health record. It is not the complete legal health record.[facility]
== END 2024-11-22 08:25 | disposition home or self-care (01) ==
LOC: CF 08:24
PROVIDERS: Visit Provider Internal Medicine
DX: M54.16 Radiculopathy, lumbar region (principal)
CPT/HCPCS: 62323; J2003; J3301; Q9967

== ENCOUNTER 2024-11-22 11:45 | Outpatient (AMB) | payer OTHER, SELFPAY ==
[2024-11-22 11:49] VITALS: BP 151/84; PULSE 77; RESP 16; O2SAT 98; BMI 35.2
--- NOTE | 2024-11-22 11:49 | A.OFFVIS_ITS ---
Vital Signs 11/22/24 11:49 11/22/24 12:36 Height 5 ft 9.5 in Weight 242 lb BMI 35.2 BP 151/84 H 151/84 H Blood Pressure Location Lt brachial Lt brachial Position Sitting Sitting Respiration 16 16 Pulse 77 87 Pulse Source Pulse Oximeter Pulse Oximeter Pulse Oximetry (%) 98 97 Oxygen Delivery Method Room Air Room Air Intake Visit Reasons: L3-L4 Parasagittal Interlaminar DOMINIQUE Allergies amoxicillin Allergy (Intermediate, Verified 10/08/24 10:20) Hives HPI HPI L3-L4 Parasagittal Interlaminar DOMINIQUE: Details: Patient presents for scheduled procedure. Denies any recent cough, cold, infection, fever or other significant changes in medical history since last office visit. [facility] Medical History (Updated 10/09/24 @ 09:06 by James Lisa MD) History of myocardial infarction Physical Exam Vital Signs: Last Vital Signs Pulse 87 11/22/24 12:36 Resp 16 11/22/24 12:36 BP 151/84 H 11/22/24 12:36 Pulse Ox 97 11/22/24 12:36 Oxygen Delivery Method Room Air 11/22/24 12:36 BMI result Body Mass Index 35.2 Office Procedures AMB Joint Injection/Aspiration Joint Injection/Aspiration Details: Interlaminar epidural steroid injection, L3/4, midline After obtaining written consent, pre-procedure blood pressure and heart rate were stable and recorded in the nursing record. The patient was placed in the prone position. The lumbar area was widely prepped with chloraprep and draped in sterile fashion. Fluoroscopic guidance was used to count and identify the L3-4 interlaminar space and for needle placement. Subcutaneous 0.5% lidocaine was used to anesthetize the skin overlying the target. A 20-gauge Lebron needle was advanced to the epidural space using loss of resistance to saline technique under fluoroscopic AP and contralateral oblique views. There was no evidence of heme or CSF and no paresthesias were elicited with needle placement. Confirmation of epidural needle placement was performed with 1cc of omnipaque 180. Next 3 ml 0.5% lidocaine mixed with 80 mg triamcinilone was administered epidurally with no pain elicited on injection. The needle tract tubing was then cleared with 1 ml of 0.5% lidocaine. The needle was removed, skin cleansed and a sterile bandage was applied. The patient tolerated the procedure well and no complications were encountered. Following the procedure the patient's vital signs were stable. The patient was discharged home in good condition with post-procedural instructions. Time Out: Immediately prior to the procedure, the following was verbally confirmed that there is a signed consent form and that the correct patient, planned procedure, site and side are consistent with documentation and that necessary equipment and/or blood products are available prior to the start of the case. Complications: none EBL: <2 cc Coding 55606 - Caudal/Lumbar Epidural/Interlaminar with fluoroscopy Procedure code (CPT) selection complete Office Meds lidocaine (PF) 10 mg/mL (1 %) injection solution Performing Provider: James Lisa MD Performing Location: [facility] Administered by: James Lisa MD on 11/22/24 12:52 Dose Route Admin Location Dispensed Lot Number Expiration Date [employer]DC Motorcycle Maker 3 mL Infiltration 3 mL Total Dispensed Waste 3 mL 0 % Assessment & Plan Assessment & Plan (1) Lumbar radicular pain: Code(s): M54.16 - Radiculopathy, lumbar region Category: Medical Plan Patient is status post L3-4 interlaminar epidural steroid injection. Patient tolerated procedure well and was discharged home in stable condition with discharge instructions. All questions were answered. We will follow-up via telephone or in clinic to assess response to therapy. A follow-up appointment was made during today's visit. Orders: Orders FL guidance in treatment room Today Linn Lucas APRN, CANAL SUPERINTENDENT M54.16 - Radiculopathy, lumbar region AMB Joint Injection/Aspiration Today James Lisa MD M54.16 - Radi culopathy, lumbar region Coding Level of Care Code Procedure Only Diagnoses Lumbar radicular pain M54.16 CPT Codes Coding - Joint 11: 51145 - Caudal/Lumbar Epidural/Interlaminar with fluoroscopy ([id number])
[2024-11-22 12:36] VITALS: BP 151/84; PULSE 87; RESP 16; O2SAT 97
== END 2024-11-22 12:42 | disposition home or self-care (01) ==
LOC: HO.PMCPRC 11:45
PROVIDERS: PCP Family Medicine; Visit Provider Internal Medicine
DX: M54.16 Radiculopathy, lumbar region (principal)
CPT/HCPCS: 62323

== ENCOUNTER 2024-12-21 10:53 | Outpatient (AMB) | payer OTHER, SELFPAY ==
--- NOTE | 2024-12-21 10:55 | A.OFFVIS_ITS ---
Vital Signs 12/21/24 10:56 Height 5 ft 9.5 in Weight 245 lb BMI 35.7 BP 136/72 Blood Pressure Location Lt brachial Position Sitting Respiration 16 Pulse 90 Pulse Source Pulse Oximeter Pulse Oximetry (%) 95 Oxygen Delivery Method Room Air Intake Visit Reasons: S/P L3-L4 Parasagittal Interlaminar ES Accompanied by: Spouse Allergies amoxicillin Allergy (Intermediate, Verified 12/21/24 10:58) Hives Medication List - Last Reconciled 12/21/24 by Kelly Tamez LPN aspirin (Adult Aspirin Regimen) 81 mg PO DAILY atorvastatin 80 mg PO DAILY dextroamphetamine-amphetamine 30 mg ER (Adderall XR) 1 cap PO DAILY doxycycline hyclate 50 mg PO BID gabapentin 400 mg PO TID metoprolol succinate ER 12.5 mg PO DAILY nitroglycerin mg sublingual oxybutynin chloride 5 mg PO BID pantoprazole 40 mg PO BID ticagrelor (Brilinta) 90 mg PO BID HPI HPI S/P L3-L4 Parasagittal Interlaminar ES: Details: History of Present Illness The patient is a 54-year-old male presenting with chronic back pain and sciatica. The back pain is exacerbated by walking and relieved by sitting, allowing him to continue working despite discomfort. The sciatica is intermittent, with severe jolts of pain that disrupt daily activities, especially during walking or standing. Facet joint arthritis contributes to the back pain, with potential future fusion surgery discussed as a management option. Lumbar spinal stenosis is suspected, and the patient is awaiting insurance approval for a lumbar decompression procedure. Tramadol provides mild relief for back pain but is ineffective for sciatica. Pain Description - Onset: Chronic, persistent pain - Quality: Intermittent severe jolts, background discomfort - Location: Lower back, radiating to legs - Exacerbating factors: Walking, standing - Relieving factors: Sitting, resting - Interference: Disrupts work and daily activities Physical Exam - Appears afebrile. - Alert and oriented. - Mood and affect appropriate. - Follows and participates in conversation appropriately. Pain Management - Affect: Pain is disruptive to daily activities and work - Analgesia: Currently using tramadol, provides mild relief for back pain, ineffective for sciatica - Adverse Effects: None reported - Activities of Daily Living: Pain affects ability to walk and perform daily tasks - Aberrant Drug Related Behaviors: None reported [facility] Medical History (Updated 10/09/24 @ 09:06 by James Lisa MD) History of myocardial infarction Physical Exam Vital Signs: Last Vital Signs Pulse 90 12/21/24 10:56 Resp 16 12/21/24 10:56 BP 136/72 12/21/24 10:56 Pulse Ox 95 12/21/24 10:56 Oxygen Delivery Method Room Air 12/21/24 10:56 BMI result Body Mass Index 35.7 Assessment & Plan Assessment & Plan (1) Lumbar spondylosis: Code(s): M47.816 - Spondylosis without myelopathy or radiculopathy, lumbar region Category: Medical (2) Lumbar radicular pain: Code(s): M54.16 - Radiculopathy, lumbar region Category: Medical (3) Spinal stenosis, lumbar region with neurogenic claudication: Code(s): M48.062 - Spinal stenosis, lumbar region with neurogenic claudication Category: Medical Plan Plan Patient was informed and verbally consented to the use of an ambient scribe for clinic note documentation during this visit. 1. Chronic Back Pain - Manage with tramadol for mild relief. - Consider facet joint injections for additional relief. 2. Sciatica - Address with lumbar decompression pending insurance approval. - Current medication regimen with tramadol is ineffective for sciatica. 3. Facet Joint Arthritis - Potential for future fusion surgery if condition worsens. - Consider facet joint injections as interim management. 4. Lumbar Spinal Stenosis - Awaiting insurance approval for lumbar decompression surgery. - Current management aims to delay surgical intervention. Discussion Notes I discussed with the patient the ongoing management of his chronic back pain and sciatica, emphasizing the potential benefits and limitations of current treatments such as tramadol and facet joint injections. We reviewed the possibi lity of lumbar decompression surgery pending insurance approval and the role of this procedure in alleviating symptoms associated with lumbar spinal stenosis. The risks and benefits of delaying fusion surgery were also discussed, with a focus on maintaining quality of life and functional ability. Patient Instructions - Continue taking tramadol as prescribed for pain management. - Await insurance approval for lumbar decompression surgery and follow up as advised. - Consider facet joint injections if recommended by the physician. - Monitor symptoms and report any significant changes, especially if experiencing increased pain or new symptoms. Coding Level of Care Code Est Pt Level 4 (55635) Diagnoses Lumbar spondylosis M47.816 Lumbar radicular pain M54.16 Spinal stenosis, lumbar region with neurogenic claudication M48.062
[2024-12-21 10:56] VITALS: BP 136/72; PULSE 90; RESP 16; O2SAT 95; BMI 35.7
--- OUTSIDE RECORDS SUMMARY | 2024-12-21 12:23 | XMS_ITS | Encounter Summary ---
Author Organization [facility] Address [address] [facility] [address] [place] [address] Phone Care Team Providers Care Bridge Inspector Name Role Phone Stevan Garza MD Primary Care Prov ider Reason for Referral * Consultation (Elective) - New Request Specialty Diagnoses / Procedures Referred By Keesha t Referred To Contact Gastroenterology Stevan Garza MD [address] [place] [address] Phone: tel: fax: mailto:[email or web address] [address] [address] Phone: tel: Referral ID Status Reason Start Date Expiration Date V isits Requested Visits Authorized [id number] New Request 12/17/2024 12/17/2025 1 1 Encounter Details Date Type Department Care Team (Late st Contact Info) Description 12/17/2024 Transcribe Orders [facility] [address] [place] [address] Stevan Garza MD [address] [place], [place] [phone] [email or web address] Social History Tobacco Use Types Packs/Day Years [...] as of this encounter Plan of Treatment Scheduled Referrals Name Type Priority Associated Diagnoses Order Schedule Ambulatory Referral to [facility] Gastroenterology Outpatient Referral Routine Ordered: 12/17/2024 documented as of this encounter Visit Diagnoses Not on filedocumented in this encounter Care Teams Bridge Inspector Relationship Specialty Start Date End Date Stevan Garza MD [address] [place] [phone] [email or web address] PCP - General Family Medicine 07/17/23 documented as of this encounter Additional Source Comments The information contained in this document represents components of the legal health record. It is not the complete legal health record.[facility]
--- OUTSIDE RECORDS SUMMARY | 2024-12-21 12:23 | XMS_ITS | Encounter Summary ---
Author Organization [facility] Address [address] [facility] [address] [place] [address] Phone Care Team Providers Care Transportation Dispatcher Name Role Phone Stevan Garza MD Primary Care Prov ider Stevan Garza MD Primary Care Prov ider Encounter Details Date Type Department Care Team (Late st Contact Info) Description 06/28/2022 Procedure Pass [facility] Endoscopy Admitting Dept Virtual Department [address] [place] [phone] Social History Tobacco Use Types Packs/Day Years [...] documented as of this encounter Care Teams Transportation Dispatcher Relationship Specialty Start Date End Date Stevan Garza MD [email or web address] PCP - General Family Medicine 01/08/19 4 Stevan Garza MD [address] [place] [phone] [email or web address] PCP - General Family Medicine 07/17/23 documented as of this encounter Additional Source Comments The information contained in this document represents components of the legal health record. It is not the complete legal health record.[facility]
--- OUTSIDE RECORDS SUMMARY | 2024-12-21 12:23 | XMS_ITS | Clinical Summary ---
Author Organization [facility] Address [address] [facility] [address] [place] [address] Phone Care Team Providers Care Tape Cutting Machine Operator Name Role Phone Stevan Garza [...] Active Active Problems No known active problems Encounters Date Type Department Care Team Description 12/17/2024 Transcribe Orders [facility] [address] [place] [address] Stevan Garza MD from Last 3 Months Social History Tobacco [...] 10/19/2023, 2023 LIPID PANEL 09/01/2028 09/02/2023, 09/02/2023 RSV VACCINE (1 - 1-dose 75+ series) 11/09/2043 HEPATITIS C SCREENING Completed 06/04/2022, 023 HEPATITIS [...] this topic Medical Devices Implanted Type Area Night Manager Device Identifier Shelf Expiration Date Model / [...] PA-C LAB BLOOD ORDERABLES Final Resu lt [address] [address] from Last 3 Months or Most Recently Relevant to Health Maintenance Insurance [place] [address] [place], [place] [address] [facility] [place] [address] [place] [address] [place] [address] [place] [address] [address] [place] [address] [facility] HMO Care Teams Tape Cutting Machine Operator Relationship Specialty Start Date End Date Stevan Garza MD [address] [place] [phone] [email or web address] PCP - General Family Medicine 07/17/23 Additional Source Comments The information contained in this document represents components of the legal health record. It is not the complete legal health record.[facility]
--- OUTSIDE RECORDS SUMMARY | 2024-12-21 12:24 | XMS_ITS | Encounter Summary ---
Author Organization [facility] Address [address] [place] [phone] Phone Care Team Providers Care Delivery Director Name Role Phone Stevan Garza MD Primary Care Prov ider Stevan Garza MD Primary Care Prov ider Reason for Referral * MRI/CAT Scan - Closed Specialty Diagnoses / Procedures Referred By Contjason t Referred To Contact Radiology Diagnoses Other specified disorders of adrenal gland Procedures CT Abdomen Only (No Pelvis) CHG CT SCAN OF ABDOMEN COMBO Stevan Garza MD [address] [place] [address] Phone: tel: fax: mailto:[email or web address] Referral ID Status Reason Start Date Expiration Date Visits Re quested Visits Authorized [id number] Closed 03/23/2023 05/22/2023 1 1 Encounter Details Date Type Department Care Team (Late st Contact Info) Description 03/23/2023 Transcribe Orders Virtual Department [address] [place] [address] Stevan Garza MD [address] [place] [phone] [email or web address] Other specified disorders of adrenal gland (Primary [...] documented as of this encounter Care Teams Delivery Director Relationship Specialty Start Date End Date Stevan Garza MD [email or web address] PCP - General Family Medicine 01/08/19 4 Stevan Garza MD [address] [place] [phone] [email or web address] PCP - General Family Medicine 07/17/23 documented as of this encounter Additional Source Comments The information contained in this document represents components of the legal health record. It is not the complete legal health record.[facility]
--- OUTSIDE RECORDS SUMMARY | 2024-12-21 12:24 | XMS_ITS | Encounter Summary ---
Author Organization [facility] Address [address] [address] Phone Care Team Providers Care Filenet Architect Name Role Phone Stevan Garza MD Primary Care Prov ider Stevan Garza MD Primary Care Prov ider Encounter Details Date Type Department Care Team (Late st Contact Info) Description 09/20/2022 Procedure Pass [facility] Cardiovascular And Interventional Radiology [address] [place] [address] Social History Tobacco Use Types Packs/Day Years [...] documented as of this encounter Care Teams Filenet Architect Relationship Specialty Start Date End Date Stevan Garza MD [email or web address] PCP - General Family Medicine 01/08/19 4 Stevan Garza MD [address] [place] [phone] [email or web address] PCP - General Family Medicine 07/17/23 documented as of this encounter Additional Source Comments The information contained in this document represents components of the legal health record. It is not the complete legal health record.[facility]
--- OUTSIDE RECORDS SUMMARY | 2024-12-21 12:24 | XMS_ITS | Encounter Summary ---
Author Organization [facility] Address [address] [facility] [address] [place] [address] Phone Care Team Providers Care Fireman Helper Name Role Phone Stevan Garza MD Primary Care Prov ider Stevan Garza MD Primary Care Prov ider Encounter Details Date Type Department Care Team (Late st Contact Info) Description 06/04/2022 Procedure Pass [facility], Ct Scan - [address] [address] Social History Tobacco Use Types Packs/Day Years [...] documented as of this encounter Care Teams Fireman Helper Relationship Specialty Start Date End Date Stevan Garza MD PCP - General Family Medicine 01/08/19 4 Stevan Garza MD [address] [place] [phone] [email or web address] PCP - General Family Medicine 07/17/23 documented as of this encounter Additional Source Comments The information contained in this document represents components of the legal health record. It is not the complete legal health record.[facility]
--- OUTSIDE RECORDS SUMMARY | 2024-12-21 12:24 | XMS_ITS | Encounter Summary ---
Author Organization [facility] Address [address] [place] [address] Care Team Providers Care Foot Tender Name Role Phone Pcp, No Primary Care Provider Unavailabl e Encounter Details Date Type Department Care Team ([facility] Contact Info) Description 05/16/2024 Procedure Pass [facility], Radiology (CT Scan) [address] [place] [address] Social History Tobacco Use Types Packs/Day Years [...] on filedocumented in this encounter Care Teams Foot Tender Relationship Specialty Start Date End Date Pcp, No [place] [address] PCP - General 05/15/24 documented as of this encounter
--- OUTSIDE RECORDS SUMMARY | 2024-12-21 12:24 | XMS_ITS | Encounter Summary ---
Author Organization [facility] Address [address] [address] Phone Care Team Providers Care Hotel Staff Member Name Role Phone Stevan Garza MD Primary Care Prov ider Stevan Garza MD Primary Care Prov ider Reason for Referral * MRI/CAT Scan - Closed Specialty Diagnoses / Procedures Referred By Keesha donald Referred To Contact Radiology Diagnoses Hepatomegaly Abdominal pain, unspecified abdominal location Bloating Procedures CT Abdomen/Pelvis CHG CT SCAN,ABDOMENT AND PELVIS,W CONTRAST Tammie Serna PA-C Phone: tel: fax: mailto:[email or web address] Referral ID Status Reason Start Date Expiration Date Visits Re quested Visits Authorized [id number] Closed 06/09/2022 07/09/2022 1 1 Encounter Details Date Type Department Care Team (Latest Contact Info) Description 06/04/2022 Transcribe Orders Virtual Department [address] [place] [address] Tammie Serna PA-C [address] [place] [address] [email or web address] Hepatomegaly (Primary Dx); Abdominal pain, unspecified abdominal [...] documented as of this encounter Care Teams Hotel Staff Member Relationship Specialty Start Date End Date Stevan Garza MD [email or web address] PCP - General Family Medicine 01/08/19 4 Stevan Garza MD [address] [place] [phone] [email or web address] PCP - General Family Medicine 07/17/23 documented as of this encounter Additional Source Comments The information contained in this document represents components of the legal health record. It is not the complete legal health record.[facility]
--- OUTSIDE RECORDS SUMMARY | 2024-12-21 12:24 | XMS_ITS | Encounter Summary ---
Author Organization [facility] Address [address] [facility] [address] [place] [address] Phone Care Team Providers Care Generator Switchboard Operator Name Role Phone Stevan Garza MD Primary Care Prov ider Stevan Garza MD Primary Care Prov ider Encounter Details Date Type Department Care Team (Latest Contact Info) Description 06/04/2022 Transcribe Orders [facility] Laboratory [address] [address] Tammie Serna PA-C [address], [address] [place] [address] [email or web address] Hepatoma (Primary Dx); Need for hepatitis C [...] EDT) SMOOTH MUSCLE AB POSITIVE AT 1:40 [facility] Comment: Radha Stoner M.D., Director Clinical Immunology Laboratory [id number] Normal: Negative at 1:20 Blood 06/04/2022 2:31 PM EDT 06/04/2022 3:10 PM EDT Tammie Serna PA-C LAB BLOOD ORDERABLES Final Resu lt [address] [address] * Anti-Mitochondrial Antibody (AMA) (06/04/2022 2:31 PM EDT) MITOCHONDRIAL AB NEGATIVE AT 1:20 [facility] Comment: Radha Stoner M.D., Director Clinical Immunology Laboratory [id number] Normal: Negative at 1:20 Blood 06/04/2022 2:31 PM EDT 06/04/2022 3:10 PM EDT Tammie Serna PA-C LAB BLOOD ORDERABLES Final Resu lt [address] [address] * Ferritin (06/04/2022 2:30 PM EDT) FERRITIN 306 30 - 400 ug/L [facility] Blood 06/04/2022 2:30 PM EDT 06/04/2022 2:39 PM EDT Tammie Serna PA-C LAB BLOOD ORDERABLES Final Resu lt [facility] [address] [place] [address] * TSH (06/04/2022 2:30 PM EDT) TSH 0.56 0.27 - 4.20 uIU/mL [facility] Blood 06/04/2022 2:30 PM EDT 06/04/2022 2:39 PM EDT Tammie Serna PA-C LAB BLOOD ORDERABLES Final Resu lt Performing Organization Address City/[facility]/ZIP Co de Phone Number [address] [address] * Iron and iron binding capacity (06/04/2022 2:30 PM EDT) IRON 77 45 - 160 ug/dL [facility] IRON BINDING CAPACITY 315 228 - 428 ug/dL [facility] TRANSFERRIN SATURAT. 24 20 - 55 % [facility] Blood 06/04/2022 2:30 PM EDT 06/04/2022 2:39 PM EDT us Tammie Serna PA-C LAB BLOOD ORDERABLES Final Resu lt Performing Organization Address [facility]/ZIP Co de Phone Number [address] [address] * Immunoglobulin A (06/04/2022 2:30 PM EDT) IgA 75 70 - 400 mg/dL [facility] Blood 06/04/2022 2:30 PM EDT 06/04/2022 2:39 PM EDT us Tammie Serna PA-C LAB BLOOD ORDERABLES Final Resu lt Performing Organization Address City/[facility]/ZIP Co de Phone Number [address] [address] * Lipase (06/04/2022 2:30 PM EDT) LIPASE 32 16 - 63 U/L [facility] Blood 06/04/2022 2:30 PM EDT 06/04/2022 2:39 PM EDT us Tammie Serna PA-C LAB BLOOD ORDERABLES Final Resu lt Performing Organization Address City/[facility]/ZIP Co de Phone Number [address] [address] * Hepatitis C antibody, qualitative (06/04/2022 2:30 PM EDT) HCV NON-REACTIV E NON-REACTI VE [facility] Blood 06/04/2022 2:30 PM EDT 06/04/2022 2:39 PM EDT Tammie Serna PA-C LAB BLOOD ORDERABLES Final Resu lt Performing Organization Address City/[facility]/ZIP Co de Phone Number [address] [address] * Hepatitis B surface antibody (06/04/2022 2:30 PM EDT) Pathologist [facility] HBV SURFACE ANTIBODY Negative [facility] Comment: Unvaccinated: Negative Vaccinated: Positive Blood 06/04/2022 2:30 PM EDT 06/04/2022 2:39 PM EDT Tammie Serna PA-C LAB BLOOD ORDERABLES Final Resu lt Performing Organization Address City/[facility] Co de Phone Number [address] [address] * Serum protein electrophoresis W/O Immunoglobulins and Immunofixation (06/04/2022 2:30 PM EDT) TOTAL PROTEIN 7.2 6.3 - 7.9 g/dL [facility] [place] Albumin 3.8 3.4 - 4.7 g/dL [facility] [place] Alpha-1 Globulin 0.3 0.1 - 0.3 g/dL [facility] [place] Alpha-2 Globulin 1.0 0.6 - 1.0 g/dL [facility] [place] Beta-Globulin 1.0 0.7 - 1.2 g/dL [facility] [place] Gamma-Globulin 1.1 0.6 - 1.6 g/dL [facility] [place] A/G Ratio 1.10 [facility] [address] [place] spike Test component not applicable or not reported. g/dL [facility]PATH [address] [place] spike Test component not applicable or not reported. g/dL [facility]PATH [address] Mascorro SEE NOTE [facility] Comment: (NOTE) No apparent monoclonal protein on serum electrophoresis. Blood 06/04/2022 2:30 PM EDT 06/04/2022 2:54 PM EDT us Tammie Serna PA-C LAB BLOOD ORDERABLES Final Resu lt [facility] [address] [place] [address] * (ABNORMAL) Liver fibrosis test (06/04/2022 2:30 PM EDT) Fibrosis score 0.78 [facility] Interpretation (Fibrosis) SEE NOTE [facility]/ [facility] Comment: (NOTE) severe fibrosis Fibro Test [...] Fibrosis Grade F4 Q [facility] NECROINFLAMM SCORE 0.32 Q [facility] NECROINFLAMM GRADE A1 Q [facility] NECROINFLAMM INTERP SEE NOTE [facility] Comment: (NOTE) minimal activity ActiTest Score [...] A2 Macroglobulin 379(H) 106 - 279 mg/dL [facility] Haptoglobin 84 43 - 212 mg/dL [facility]/ [facility] Apolipoprotein A1 106 94 - 176 mg/dL [facility] TOTAL BILIRUBIN 0.8 0.2 - 1.2 mg/dL [facility]/ [facility] GGT 37 3 - 95 U/L [facility] ALT 35 9 - 46 U/L [facility]/ [facility] Specimen/Product ID [id number] [facility] Comments (Chemistry) SEE NOTE [facility] Comment: (NOTE) The reliability of results is dependent on compliance with the preanalytical and analytical conditions recommended by [employer]. The tests have to be deferred for: [...] The performance characteristics have been determined by [employer]. It has not been cleared or approved by the U.S. Food and Drug Administration. Performance characteristics refer to the analytical performance of the test. [employer], the associated logo, [employer] and all associated [employer] black are the registered trademarks of [employer]. All third constitution party black - (R) and (TM) - are the property of their respective owners. (C) [id number] [employer]. All rights reserved. Blood 06/04/2022 2:30 PM EDT 06/04/2022 3:10 PM EDT Tammie Serna PA-C LAB BLOOD ORDERABLES Final Resu lt [facility] [email or web address] [address] [place] [address], [facility] [phone] * C-Reactive Protein (06/04/2022 2:30 PM EDT) Pathologist [facility] C REACTIVE PROTEIN <3.0 0.0 - 4.0 mg/L [facility] Blood 06/04/2022 2:30 PM EDT 06/04/2022 2:39 PM EDT Tammie Serna PA-C LAB BLOOD ORDERABLES Final Resu lt [address] [address] * (ABNORMAL) Comprehensive metabolic panel (06/04/2022 2:30 PM EDT) SODIUM 138 133 - 146 mmol/L [facility] POTASSIUM 4.1 3.3 - 5.1 mmol/L [facility] CHLORIDE 102 96 - 108 mmol/L [facility] CO2 22 21 - 35 mmol/L [facility] BUN 35(H) 6 - 19 mg/dL [facility] CREATININE 1.20 0.5 - 1.5 mg/dL [facility] GLUCOSE 91 70 - 99 mg/dL [facility] ALBUMIN 4.8 3.9 - 4.8 g/dL [facility] TOTAL PROTEIN 7.3 6.5 - 8.0 g/dL [facility] CALCIUM 10.0 8.4 - 10.3 mg/dL [facility] ALKALINE PHOSPHATASE 85 39 - 117 U/L [facility] TOTAL BILIRUBIN 0.7 0.0 - 1.2 mg/dL [facility] AST 28 0 - 37 U/L [facility] ALT 41(H) 0 - 40 U/L [facility] GLOBULIN 2.5 1 - 4.8 g/dL [facility] EGFR 72 >59 mL/min/1.[address] [facility] Comment:Estimated glomerular filtration rate calculated using the CKD-EPI refit equation. ANION GAP 18 10 - 20 mmol/L [facility] Blood 06/04/2022 2:30 PM EDT 06/04/2022 2:39 PM EDT us Tammie Serna PA-C LAB BLOOD ORDERABLES Final Resu lt Performing Organization Address City/[facility]/ZIP Co de Phone Number [address] [address] * (ABNORMAL) CBC (06/04/2022 2:30 PM EDT) WBC 5.81 4.00 - 11.00 K/uL [facility] RBC 5.29 4.23 - 5.82 M/uL [facility] HGB 15.4 13.4 - 17.5 g/dL [facility] HCT 45.9 37.0 - 51.0 % [facility] PLT 129(L) 140 - 430 K/uL [facility] MCV 86.8 78.0 - 97.[address] [facility] MCH 29.1 25.0 - 33.[address] [facility] MCHC 33.6 32.0 - 36.0 g/dL [facility] RDW 13.1 11.0 - 15.0 % [facility] MPV 12.6 8.4 - 12.[address] [facility] Blood 06/04/2022 2:30 PM EDT 06/04/2022 2:39 PM EDT us Tammie Serna PA-C LAB BLOOD ORDERABLES Final Resu lt Performing Organization Address City/[facility]/ZIP Co de Phone Number [address] [address] * Tissue transglutaminase IgA (06/04/2022 2:30 PM EDT) Pathologist [facility] TTG IGA ANTIBODY <1.2 <4.0 (Negative) U/mL [facility] Blood 06/04/2022 2:30 PM EDT 06/04/2022 2:54 PM EDT us Tammie Serna PA-C LAB BLOOD ORDERABLES Final Resu lt [facility] [address] [address] [place] [address] * Antinuclear antibody (CHANELLE) (06/04/2022 2:30 PM EDT) Pathologist [facility] CHANELLE SCREEN ON HEP [address] Negative [address] [facility] Blood 06/04/2022 2:30 PM EDT 06/04/2022 2:39 PM EDT us Tammie Serna PA-C LAB BLOOD ORDERABLES Final Resu lt Performing Organization Address [facility]/ZIP Co de Phone Number [address] [address] * AFP (non-maternal specimens) (06/04/2022 2:30 PM EDT) [facility] AFP (NON-MATERNAL) <1.8 <7.9 ng/mL [facility] Blood 06/04/2022 2:30 PM EDT 06/04/2022 2:39 PM EDT Tammie Serna PA-C LAB BLOOD ORDERABLES Final Resu lt Performing Organization Address City/[facility]/ZIP Co de Phone Number [address] [address] * Jkqem-4-ntjigkqzuhx phenotyping (06/04/2022 2:30 PM EDT) Pathologist [facility] ALPHA 1 ANTITRYPSIN 168 100 - 190 mg/dL [facility] Comment: (NOTE) ADDITIONAL INFORMATION Method: Nephelometry A1A PHENOTYPE MM bands [facility] Comment: (NOTE) A single M isoform is detected. In the context of a normal tmrky-8-uxluoulanrw concentration, this is consistent with an MM phenotype. ADDITIONAL INFORMATION Method: Isoelectric Focusing, This assay identifies the phenotype of the circulating thchy-4-rrdqfqunmox (A1A) protein. If the patient is on replacement therapy or has been recently transfused, the phenotype will detect patient and replacement or transfused plasma A1A protein. This test also cannot detect a null allele which could be responsible for an A1A deficiency. Blood 06/04/2022 2:30 PM EDT 06/04/2022 2:54 PM EDT us Tammie Serna PA-C LAB BLOOD ORDERABLES Final Resu lt [facility] [address] [place] [address] documented in this encounter Visit Diagnoses Diagnosis [...] documented as of this encounter Care Teams Generator Switchboard Operator Relationship Specialty Start Date End Date Stevan Garza MD [email or web address] PCP - General Family Medicine 01/08/19 4 Stevan Garza MD [address] [place] [phone] [email or web address] PCP - General Family Medicine 07/17/23 documented as of this encounter Additional Source Comments The information contained in this document represents components of the legal health record. It is not the complete legal health record.[facility]
--- OUTSIDE RECORDS SUMMARY | 2024-12-21 12:24 | XMS_ITS | Encounter Summary ---
Author Organization [facility] Address [address] [place] [address] Care Team Providers Care Inspector Motor Vehicles Name Role Phone Pcp, No Primary Care Provider Unavailabl e Encounter Details Date Type Department Care Team ([facility] Contact Info) Description 05/15/2024 Procedure Pass [facility], Radiology (CT Scan) [address] [place] [id number] Social History Tobacco Use Types Packs/Day Years [...] on filedocumented in this encounter Care Teams Inspector Motor Vehicles Relationship Specialty Start Date End Date Pcp, No [place] [address] PCP - General 05/15/24 documented as of this encounter
--- OUTSIDE RECORDS SUMMARY | 2024-12-21 12:24 | XMS_ITS | Encounter Summary ---
Author Organization [facility] Address [address] [facility] [address] [place] [address] Phone Care Team Providers Care Instructor Modeling Name Role Phone Stevan Garza MD Primary Care Prov ider Stevan Garza MD Primary Care Prov ider Encounter Details Date Type Department Care Team (Latest Contact Info) Description 09/07/2022 Transcribe Orders Virtual Department [address] [place] [address] Tammie Serna PA-C [address] [place] [address] [email or web address] Fatty liver (Primary Dx) Social History Tobacco [...] documented as of this encounter Care Teams Instructor Modeling Relationship Specialty Start Date End Date Stevan Garza MD [email or web address] PCP - General Family Medicine 01/08/19 4 Stevan Garza MD [address] [place] [phone] [email or web address] PCP - General Family Medicine 07/17/23 documented as of this encounter Additional Source Comments The information contained in this document represents components of the legal health record. It is not the complete legal health record.[facility]
--- OUTSIDE RECORDS SUMMARY | 2024-12-21 12:24 | XMS_ITS | Encounter Summary ---
Author Organization [facility] Address [address] [facility] [address] [place] [address] Phone Care Team Providers Care Shuttle Final Inspector Name Role Phone Stevan Garza MD Primary Care Prov ider Encounter Details Date Type Department Care Team (Latest Contact Info) Description 12/27/2023 Transcribe Orders Virtual Department [address] [place] [address] Tammie Serna PA-C [address] [place] [address] Bloating (Primary Dx); Upper abdominal pain Social [...] pain documented in this encounter Care Teams Shuttle Final Inspector Relationship Specialty Start Date End Date Stevan Garza MD [address] [place] [address] [email or web address] PCP - General Family Medicine 07/17/23 documented as of this encounter Additional Source Comments The information contained in this document represents components of the legal health record. It is not the complete legal health record.[facility]
--- OUTSIDE RECORDS SUMMARY | 2024-12-21 12:24 | XMS_ITS | Clinical Summary ---
Author Organization [facility] Address [address] [place] [address] Care Team Providers Care Business Analytics Manager Name Role Phone Pcp, No Primary Care Provider Unavailabl e Allergies Active Allergy Reactions Criticality Noted Date Comments Amoxicillin Hives Medium 05/15/2024 Medications HYDROcodone-acet aminophen ([place]) 5-325 mg tablet Take 1 tablet by [...] of 2) 2018 COVID-19 Vaccine (1 - 2024-2 6 season) 2024 Influenza Vaccine (#1) 2024 HIB [...] patient's age to complete this topic Insurance [facility] Care Teams Business Analytics Manager Relationship Specialty Start Date End Date Pcp, No No PCP On File AMIE Borrego [phone] PCP - General 05/15/24
--- OUTSIDE RECORDS SUMMARY | 2024-12-21 12:24 | XMS_ITS | Encounter Summary ---
Author Organization [facility] Address [address] [facility] [address] [place] [address] Phone Care Team Providers Care Delivery Consultant Name Role Phone Stevan Garza MD Primary Care Prov ider Stevan Garza MD Primary Care Prov ider Encounter Details Date Type Department Care Team (Late st Contact Info) Description 03/23/2023 Procedure Pass [facility], Ct Scan - [address] [address] Social History Tobacco Use Types Packs/Day Years [...] as of this encounter Care Teams Delivery Consultant Relationship Specialty Start Date End Date Stevan Garza MD [email or web address] PCP - General Family Medicine 01/08/19 Stevan Garza MD [address] [place] [phone] [email or web address] PCP - General Family Medicine 07/17/23 documented as of this encounter Additional Source Comments The information contained in this document represents components of the legal health record. It is not the complete legal health record.[facility]
== END 2024-12-21 11:26 | disposition home or self-care (01) ==
LOC: HO.PMC 10:54
PROVIDERS: PCP Family Medicine; Visit Provider Internal Medicine
DX: M47.816 Spondylosis without myelopathy or radiculopathy, lumbar region (principal); M54.16 Radiculopathy, lumbar region; M48.062 Spinal stenosis, lumbar region with neurogenic claudication
CPT/HCPCS: 99214